=== PATIENT | female | born 1930 | race Caucasian/White ===

== ENCOUNTER 2017-01-30 20:07 | Emergency (ER) | payer MEDICARE, BC ==
[2017-01-30 21:21] LABS: Hematocrit 36 % (35-47); Hemoglobin 11.5 g/dl (12.0-16.0); Mean Corpuscular HGB Conc 33 g/dl (31-36); Mean Corpuscular Hemoglobin 28 pg (27-31); Mean Corpuscular Volume 86 fL (80-97); Mean Platelet Volume 8 um3 (7.4-10.4); Red Blood Count 4.12 10^6/ul (4.0-5.4); Red Cell Distribution Width 13 % (10.5-15); White Blood Count 11.7 10^3/ul (3.5-10.8)
--- NOTE | 2017-01-30 21:27 | RAD ---
INDICATION: Short of breath COMPARISON: January 31, 2014 TECHNIQUE: An AP portable view obtained at 2117 hours is submitted. FINDINGS: Bones/Soft Tissues: There are no acute bony findings. There is a scoliotic deformity. Cardiomediastinal: The cardiomediastinal silhouette is normal. Lungs: There is hyperinflation with mild chronic interstitial change. Pleura: There are no pleural effusions. Other: None IMPRESSION: HYPERINFLATION WITH MILD CHRONIC INTERSTITIAL CHANGE. NO ACUTE FINDINGS.
[2017-01-30 21:36] LABS: Albumin 3.5 g/dL (3.2-5.2); BUN/Creatinine Ratio 22.9 (8-20); Calcium 9.3 mg/dL (8.6-10.3); EGFR African American 102.3 (>60); EGFR Non-African American 79.5 (>60); Globulin 3.5 g/dL (2-4); Potassium 3.4 mmol/L (3.5-5.0); Total Bilirubin 0.5 mg/dL (0.2-1.0)
[2017-01-30] MEDS ORDERED: Clarithromycin TAB* 500 MG PO ONE ×2 (22:32→22:33)
[2017-01-30 22:45] VITALS: BP 118/57
--- NOTE | 2017-01-31 09:25 | ED ---
Susannah Bailey Thomas, scribed for Joseph Slade MD on 01/30/17 at 2058 . Shortness of Breath - HPI Summary HPI Summary: The patient is a 86 y/o F with a Hx of pulmonary problems who presents to the ED c/o SOB that began two days ago. She takes Symbicort and albuterol at home, which have not relieved her SOB. She additionally c/o a productive cough (mucus production) and weakness. She denies CP and pedal edema. She also takes Ambien at night. She sees Dr. James for her pulmonary problems. She says she quit smoking about a month ago although she did have a cigarette en route to [facility] [place] [facility] [place] - History of Current Complaint Chief Complaint: EDShortnessOfBreath Time Seen by Provider: 01/30/17 20:42 Hx Obtained From: Patient Onset/Duration: Lasting Days - onset two days ago, Still Present Timing: Constant Current Severity: Moderate Dyspnea At: Rest Aggrevating Factors: Nothing Alleviating Factors: Nothing Associated Signs & Symptoms: Cough (Productive) - mucus production Related History: Similar Episode - She has similar prior episodes of SOB. - Allergy/Home Medications Allergies/Adverse Reactions: Allergies Allergy/AdvReac Type Severity Reaction Status Date / Time No Known Allergies Allergy Verified 01/30/17 20:14 PMH/Surg Hx/FS Hx/Imm Hx Previously Healthy: No Endocrine/Hematology History: Denies: Hx Diabetes Cardiovascular History: Denies: Hx Congestive Heart Failure, Hx Hypertension Respiratory History: Reports: Other Respiratory Problems/Disorders - current SOB with exertion History: Denies: Hx Renal Disease - Surgical History Surgery Procedure, Year, and Place: gallbladder removal, appy, hysterectomy - Immunization History Date of Tetanus Vaccine: Unknown Infectious Disease History: No Infectious Disease History: Denies: Traveled Outside the [place] in Last 30 Days - Family History Known Family History: Positive: Other - POS: DM, [place] - Social History Alcohol Use: None Substance Use Type: Reports: None Smoking Status (MU): Heavy Every Day Tobacco Smoker Review of Systems Negative: Fever Negative: Chest Pain Positive: Shortness Of Breath - onset two days ago, unrelieved by Symbicort and albuterol Negative: Edema - legs All Other Systems Reviewed And Are Negative: Yes Physical Exam Triage Information Reviewed: Yes Vital Signs On Initial Exam: Initial Vitals Temp Pulse Resp BP Pulse Ox 97.9 F 118 36 122/48 93 01/30/17 20:12 01/30/17 20:12 01/30/17 20:12 01/30/17 20:12 01/30/17 20:12 Vital Signs Reviewed: Yes Appearance: Positive: Well-Appearing, No Pain Distress, Well-Nourished Skin: Positive: Warm, Skin Color Reflects Adequate Perfusion, Dry Head/Face: Positive: Normal Head/Face Inspection Eyes: Positive: Normal ENT: Positive: Normal ENT inspection Neck: Positive: Supple, Nontender Respiratory/Lung Sounds: Positive: Breath Sounds Present, Other - There are crackles at the right base. Cardiovascular: Positive: RRR Abdomen Description: Positive: Nontender, Soft Bowel Sounds: Positive: Present Musculoskeletal: Positive: Normal Neurological: Positive: Normal Psychiatric: Positive: Normal, Affect/Mood Appropriate Diagnostics - Vital Signs Vital Signs Temp Pulse Resp BP Pulse Ox 01/30/17 20:15 97.9 F 118 36 122/48 93 01/30/17 20:12 97.9 F 118 36 122/48 93 - Laboratory Lab Results: Lab Results 01/30/17 01/30/17 01/30/17 Range/Units 21:10 21:10 21:10 WBC 11.7 H (3.5-10.8) 10^3/ul RBC 4.12 (4.0-5.4) 10^6/ul Hgb 11.5 L (12.0-16.0) g/dl Hct 36 (35-47) % MCV 86 (80-97) fL MCH 28 (27-31) pg MCHC 33 (31-36) g/dl RDW 13 (10.5-15) % Plt Count 240 (150-450) 10^3/ul MPV 8 (7.4-10.4) um3 Neut % (Auto) 67.4 (38-83) % Lymph % (Auto) 17.7 L (25-47) % [place] % (Auto) 13.0 H (1-9) % Eos % (Auto) 1.5 (0-6) % Baso % (Auto) 0.4 (0-2) % Absolute Neuts (auto) 7.9 H (1.5-7.7) 10^3/ul Absolute Lymphs (auto) 2.1 (1.0-4.8) 10^3/ul Absolute Monos (auto) 1.5 H (0-0.8) 10^3/ul Absolute Eos (auto) 0.2 (0-0.6) 10^3/ul Absolute Basos (auto) 0.1 (0-0.2) 10^3/ul Absolute Nucleated RBC 0 10^3/ul Nucleated RBC % 0 Sodium 131 L (133-145) mmol/L Potassium 3.4 L (3.5-5.0) mmol/L Chloride 100 L (101-111) mmol/L Carbon Dioxide 24 (22-32) mmol/L Anion Gap 7 (2-11) mmol/L BUN 16 (6-24) mg/dL Creatinine 0.70 (0.51-0.95) mg/dL Est GFR ( Amer) 102.3 (>60) Est GFR (Non-Af Amer) 79.5 (>60) BUN/Creatinine Ratio 22.9 H (8-20) Glucose 124 H (70-100) mg/dL Lactic Acid (0.5-2.0) mmol/L Calcium 9.3 (8.6-10.3) mg/dL Total Bilirubin 0.50 (0.2-1.0) mg/dL AST 12 L (13-39) U/L ALT 11 (7-52) U/L Alkaline Phosphatase 68 (34-104) U/L Troponin I 0.00 (<0.04) ng/mL B-Natriuretic Peptide 54 ( - 100) pg/mL Total Protein 7.0 (6.4-8.9) g/dL Albumin 3.5 (3.2-5.2) g/dL Globulin 3.5 (2-4) g/dL Albumin/Globulin Ratio 1.0 (1-3) 01/30/17 Range/Units 21:10 WBC (3.5-10.8) 10^3/ul RBC (4.0-5.4) 10^6/ul Hgb (12.0-16.0) g/dl Hct (35-47) % MCV (80-97) fL MCH (27-31) pg MCHC (31-36) g/dl RDW (10.5-15) % Plt Count (150-450) 10^3/ul MPV (7.4-10.4) um3 Neut % (Auto) (38-83) % Lymph % (Auto) (25-47) % [place] % (Auto) (1-9) % Eos % (Auto) (0-6) % Baso % (Auto) (0-2) % Absolute Neuts (auto) (1.5-7.7) 10^3/ul Absolute Lymphs (auto) (1.0-4.8) 10^3/ul Absolute Monos (auto) (0-0.8) 10^3/ul Absolute Eos (auto) (0-0.6) 10^3/ul Absolute Basos (auto) (0-0.2) 10^3/ul Absolute Nucleated RBC 10^3/ul Nucleated RBC % Sodium (133-145) mmol/L Potassium (3.5-5.0) mmol/L Chloride (101-111) mmol/L Carbon Dioxide (22-32) mmol/L Anion Gap (2-11) mmol/L BUN (6-24) mg/dL Creatinine (0.51-0.95) mg/dL Est GFR ( Amer) (>60) Est GFR (Non-Af Amer) (>60) BUN/Creatinine Ratio (8-20) Glucose (70-100) mg/dL Lactic Acid 1.2 (0.5-2.0) mmol/L Calcium (8.6-10.3) mg/dL Total Bilirubin (0.2-1.0) mg/dL AST (13-39) U/L ALT (7-52) U/L Alkaline Phosphatase (34-104) U/L Troponin I (<0.04) ng/mL B-Natriuretic Peptide ( - 100) pg/mL Total Protein (6.4-8.9) g/dL Albumin (3.2-5.2) g/dL Globulin (2-4) g/dL Albumin/Globulin Ratio (1-3) Result Diagrams: 01/30/17 21:10 01/30/17 21:10 Lab Statement: Any lab studies that have been ordered have been reviewed, and results considered in the medical decision making process. - EKG 20:22 Cardiac Rate: Tachycardia - 100 BPM EKG Interpretation: Sinus tachycardia. Course/Dx - Course Course Of Treatment: Ms Beckford clearly has pulmonary problems. She is being W/ U'd and taken care of by . She is a smoker. She uses COPD meds. When she arrived, Her SPO2 was marginal, she was tachycardic and she was mildly tachypneic. I heard no wheezes although she had just had a neb in the EMS. I did hear a lot of upper airway sounds and crackles in her right base. A CXR was read as no acute pathology by the radiologist although I wasn't sure about the RLL. I wanted to treat her more aggressively with steroids and admission to the hospital but she wanted to go home as she felt better. She was still in the low 90's for SPO2 and a little tachypneic at about 20. She was no longer tachycardic. She may have bronchiectasis and I am going to cover her with levaquin and encourage return for worsening and close F/U. - Diagnoses Provider Diagnoses: Bronchitis Discharge - Discharge Plan Condition: Stable Disposition: HOME Prescriptions: Levofloxacin TAB* [Levaquin TAB*] 750 mg PO DAILY #10 tab Patient Education Materials: Acute Bronchitis (ED) Referrals: Coreen Zavala MD [Primary Care Provider] - 4 Days Additional Instructions: Follow up with your primary care provider within a 4-5 days. Return to the emergency department for any new or worsening symptoms. The documentation as recorded by the Susannah blanchard Thomas accurately reflects the service I personally performed and the decisions made by me, Joseph Slade MD.
== END 2017-01-30 22:45 | disposition home or self-care (01) ==
LOC: ED 20:07
DX: J40 Bronchitis, not specified as acute or chronic (principal); R05 Cough; R06.2 Wheezing; F17.210 Nicotine dependence, cigarettes, uncomplicated
CPT/HCPCS: 36415; 71010; 80053; 83605; 83880; 84484; 85025; 93005; 99283; A9270-GY

== ENCOUNTER 2017-01-31 18:12 | Inpatient (IN) | payer MEDICARE, BC ==
[2017-01-31] MEDS ORDERED: diPHENhydraMINE IV* 50 MG/ML 1 ml VIAL (BENADRYL) IV ONE (20:36)
[2017-01-31] MEDS ORDERED: methylPREDNISolone 125 MG* 2 ML VIAL IV ONE (20:37)
[2017-01-31] MEDS ORDERED: Albuterol/Ipratropium NEB.SOL* Albuterol 2.5 MG/Ipratropium 0.5 MG 3 ML INH ONE (20:39)
[2017-01-31] MEDS: NS 0.9% 1000 ML* 2,100 ML IV ONE ×2 (21:01→23:15)
--- NOTE | 2017-01-31 21:09 | RAD ---
INDICATION: Pneumonia COMPARISON: January 30, 2017 TECHNIQUE: PA and lateral dual-energy views were obtained. FINDINGS: Bones/Soft Tissues: There are no acute bony findings. Cardiomediastinal: The cardiomediastinal silhouette is normal. Lungs: There is a small right basal infiltrate. The remaining lung waddell are clear. There is mild hyperinflation. Pleura: There are no pleural effusions. Other: None IMPRESSION: SMALL RIGHT BASAL INFILTRATE.
[2017-01-31 21:41] LABS: Hematocrit 34 % (35-47); Hemoglobin 11.1 g/dl (12.0-16.0); Mean Corpuscular HGB Conc 33 g/dl (31-36); Mean Corpuscular Hemoglobin 28 pg (27-31); Mean Corpuscular Volume 87 fL (80-97); Mean Platelet Volume 8 um3 (7.4-10.4); Red Blood Count 3.91 10^6/ul (4.0-5.4); Red Cell Distribution Width 13 % (10.5-15); White Blood Count 11.5 10^3/ul (3.5-10.8)
[2017-01-31 21:56] LABS: Albumin 3.3 g/dL (3.2-5.2); BUN/Creatinine Ratio 20.8 (8-20); Calcium 8.6 mg/dL (8.6-10.3); Globulin 3.4 g/dL (2-4); Potassium 3.8 mmol/L (3.5-5.0); Total Bilirubin 0.6 mg/dL (0.2-1.0); Total Protein 6.7 g/dL (6.4-8.9)
[2017-01-31 21:57] LABS: Troponin I 0.01 ng/mL (<0.04)
--- NOTE | 2017-02-01 01:05 | ED ---
Vitaliy Bailey Angela, scribed for Rose Dotson MD on 01/31/17 at 2028 . Shortness of Breath - HPI Summary HPI Summary: This pt is a 86 y/o female presenting to [facility] c/o sinus congestion and SOB x2 days ago, and now has increased SOB. Pt was in the ED yesterday and was given antibiotics for pneumonia. Pt states she has taken the Clarithromycin and Levaquin as prescribed, but she feels worse. Pt is a current smoker. - History of Current Complaint Chief Complaint: EDShortnessOfBreath Time Seen by Provider: 01/31/17 20:06 Hx Obtained From: Patient, Family/Polisher And Sander - Onset/Duration: Lasting Days Timing: Constant Dyspnea At: Exertion Aggrevating Factors: Nothing Alleviating Factors: Nothing - Allergy/Home Medications Allergies/Adverse Reactions: Allergies Allergy/AdvReac Type Severity Reaction Status Date / Time No Known Allergies Allergy Verified 01/31/17 20:42 Home Medications: Home Medications Clarithromycin TAB* 01/31/17 [History] PMH/Surg Hx/FS Hx/Imm Hx Endocrine/Hematology History: Denies: Hx Diabetes Cardiovascular History: Denies: Hx Congestive Heart Failure, Hx Hypertension Respiratory History: Reports: Other Respiratory Problems/Disorders - current SOB with exertion History: Denies: Hx Renal Disease - Surgical History Surgery Procedure, Year, and Place: gallbladder removal, appy, hysterectomy - Immunization History Date of Tetanus Vaccine: Unknown Infectious Disease History: No Infectious Disease History: Denies: Traveled Outside the [place] in Last 30 Days - Family History Known Family History: Positive: Other - POS: DM, [place] Negative: Hypertension - Social History Lives: With Family - Alcohol Use: None Substance Use Type: Reports: None Smoking Status (MU): Heavy Every Day Tobacco Smoker Review of Systems Negative: Fever, Chills Eyes: Negative ENT: Negative Negative: Palpitations, Chest Pain Positive: Shortness Of Breath Gastrointestinal: Negative Genitourinary: Negative Musculoskeletal: Negative Skin: Negative Neurological: Negative All Other Systems Reviewed And Are Negative: Yes Physical Exam Triage Information Reviewed: Yes Vital Signs On Initial Exam: Initial Vitals Temp Pulse Resp BP Pulse Ox 100 F 116 22 123/60 92 01/31/17 18:22 01/31/17 18:22 01/31/17 18:22 01/31/17 18:22 01/31/17 18:22 Vital Signs Reviewed: Yes Appearance: Positive: No Pain Distress, Ill-Appearing Skin: Positive: Warm, Skin Color Reflects Adequate Perfusion, Dry Eyes: Positive: EOMI, CORAL ENT: Positive: Pharynx normal, TMs normal Neck: Positive: Supple, Nontender Respiratory/Lung Sounds: Positive: Rhonchi - at the bases, Other - tachypnic but not in respiratory failure Cardiovascular: Positive: RRR. Negative: Murmur, Rub, Other - gallop Abdomen Description: Positive: Nontender, Soft Bowel Sounds: Positive: Present Musculoskeletal: Positive: Strength/ROM Intact. Negative: Edema Left, Edema Right Neurological: Positive: Sensory/Motor Intact, Alert, Oriented to Person Place, Time, CN Intact II-III Psychiatric: Positive: Affect/Mood Appropriate Diagnostics - Vital Signs Vital Signs Temp Pulse Resp BP Pulse Ox 01/31/17 20:16 98.9 F 94 20 101/57 94 01/31/17 19:12 101.6 F 111 18 107/57 94 01/31/17 18:22 100 F 116 22 123/60 92 - Laboratory Lab Results: Lab Results 01/31/17 01/31/17 01/31/17 Range/Units 21:31 21:31 21:31 WBC 11.5 H (3.5-10.8) 10^3/ul RBC 3.91 L (4.0-5.4) 10^6/ul Hgb 11.1 L (12.0-16.0) g/dl Hct 34 L (35-47) % MCV 87 (80-97) fL MCH 28 (27-31) pg MCHC 33 (31-36) g/dl RDW 13 (10.5-15) % Plt Count 231 (150-450) 10^3/ul MPV 8 (7.4-10.4) um3 Neut % (Auto) 71.1 (38-83) % Lymph % (Auto) 16.5 L (25-47) % [place] % (Auto) 12.0 H (1-9) % Eos % (Auto) 0.2 (0-6) % Baso % (Auto) 0.2 (0-2) % Absolute Neuts (auto) 8.2 H (1.5-7.7) 10^3/ul Absolute Lymphs (auto) 1.9 (1.0-4.8) 10^3/ul Absolute Monos (auto) 1.4 H (0-0.8) 10^3/ul Absolute Eos (auto) 0 (0-0.6) 10^3/ul Absolute Basos (auto) 0 (0-0.2) 10^3/ul Absolute Nucleated RBC 0.01 10^3/ul Nucleated RBC % 0 INR (Anticoag Therapy) 1.43 H (0.89-1.11) APTT 29.9 (26.0-36.3) seconds Sodium 134 (133-145) mmol/L Potassium 3.8 (3.5-5.0) mmol/L Chloride 101 (101-111) mmol/L Carbon Dioxide 24 (22-32) mmol/L Anion Gap 9 (2-11) mmol/L BUN 15 (6-24) mg/dL Creatinine 0.72 (0.51-0.95) mg/dL Est GFR ( Amer) 99.0 (>60) Est GFR (Non-Af Amer) 77.0 (>60) BUN/Creatinine Ratio 20.8 H (8-20) Glucose 112 H (70-100) mg/dL Lactic Acid (0.5-2.0) mmol/L Calcium 8.6 (8.6-10.3) mg/dL Total Bilirubin 0.60 (0.2-1.0) mg/dL AST 14 (13-39) U/L ALT 12 (7-52) U/L Alkaline Phosphatase 59 (34-104) U/L Troponin I 0.01 (<0.04) ng/mL Total Protein 6.7 (6.4-8.9) g/dL Albumin 3.3 (3.2-5.2) g/dL Globulin 3.4 (2-4) g/dL Albumin/Globulin Ratio 1.0 (1-3) 01/31/17 Range/Units 21:31 WBC (3.5-10.8) 10^3/ul RBC (4.0-5.4) 10^6/ul Hgb (12.0-16.0) g/dl Hct (35-47) % MCV (80-97) fL MCH (27-31) pg MCHC (31-36) g/dl RDW (10.5-15) % Plt Count (150-450) 10^3/ul MPV (7.4-10.4) um3 Neut % (Auto) (38-83) % Lymph % (Auto) (25-47) % [place] % (Auto) (1-9) % Eos % (Auto) (0-6) % Baso % (Auto) (0-2) % Absolute Neuts (auto) (1.5-7.7) 10^3/ul Absolute Lymphs (auto) (1.0-4.8) 10^3/ul Absolute Monos (auto) (0-0.8) 10^3/ul Absolute Eos (auto) (0-0.6) 10^3/ul Absolute Basos (auto) (0-0.2) 10^3/ul Absolute Nucleated RBC 10^3/ul Nucleated RBC % INR (Anticoag Therapy) (0.89-1.11) APTT (26.0-36.3) seconds Sodium (133-145) mmol/L Potassium (3.5-5.0) mmol/L Chloride (101-111) mmol/L Carbon Dioxide (22-32) mmol/L Anion Gap (2-11) mmol/L BUN (6-24) mg/dL Creatinine (0.51-0.95) mg/dL Est GFR ( Amer) (>60) Est GFR (Non-Af Amer) (>60) BUN/Creatinine Ratio (8-20) Glucose (70-100) mg/dL Lactic Acid 1.4 (0.5-2.0) mmol/L Calcium (8.6-10.3) mg/dL Total Bilirubin (0.2-1.0) mg/dL AST (13-39) U/L ALT (7-52) U/L Alkaline Phosphatase (34-104) U/L Troponin I (<0.04) ng/mL Total Protein (6.4-8.9) g/dL Albumin (3.2-5.2) g/dL Globulin (2-4) g/dL Albumin/Globulin Ratio (1-3) Result Diagrams: 01/31/17 21:31 01/31/17 21:31 Lab Statement: Any lab studies that have been ordered have been reviewed, and results considered in the medical decision making process. - Radiology Chest XR Xray Interpretation: Positive (See Comments) - IMPRESSION: small right basal infiltrate. ED physician has reviewed this radiology report and agrees. Radiology Interpretation Completed By: Radiologist - EKG 2034 Cardiac Rate: NL EKG Rhythm: Sinus Rhythm EKG Comparison: No Significant Change - No change compared to yesterday's () EKG. Course/Dx - Course Assessment/Plan: pt seen on Sat with likely pneumonia pt wanted to go home despite offering admission and is back today with worsened shortness of breath. cxr today does show an infiltrate,case was discussed with Kumar and she was accepted for admission - Diagnoses Differential Diagnosis/HQI/PQRI: Positive: Pneumonia Provider Diagnoses: Pneumonia, COPD (chronic obstructive pulmonary disease) - Physician Notifications Discussed Care of Patient With: Luis Heath Time Discussed With Above Provider: 20:40 Instructed by Provider To: Other - I discussed the pt's case with Dr. Heath. He has agreed to admit the pt. Discharge - Discharge Plan Condition: Stable Disposition: ADMITTED TO [facility] Referrals: Coreen Zavala MD [Primary Care Provider] - The documentation as recorded by the Vitaliy blanchard Angela accurately reflects the service I personally performed and the decisions made by me, Rose Dotson MD.
--- NOTE | 2017-02-01 03:30 | HP ---
H&P (Free Text) History and Physical: PCP: Chaim Zavala MD Date/Time: 02/01/2017 0300 CC: SOB, cough HPI: Mrs Beckford is an 86YO female seen at [facility] [place] [facility] 01/30/2017 for SOB & cough with a negative evaluation and released with a prescription for clarithromycin & levofloxacin for suspected pneumnonia which she reports taking, but feels worse. She returns today for ongoing SOB & cough. She also has decreased appetite, generalized weakness, & malaise. She denies chest pain, N/V, palpitations, LE edema, or other issues. Repeat CXR today shows interval development of a RLL infiltrate. PMedHx insomnia Ambulatory Orders Zolpidem TAB* [Ambien*] 10 mg PO BEDTIME 12/24/13 Clarithromycin TAB* 01/31/17 Levofloxacin TAB* [Levaquin TAB*] 750 mg PO DAILY #10 tab 01/31/17 Allergies No Known Allergies Allergy (Verified 01/31/17 20:42) PSurgHx OU cataract extractions cholecystectomy appendectomy hysterectomy SocHx: 1PPD tobacco, no alcohol, no recreational drugs; x2, lives with her son; full code status FamHx: Mother passed at 87 2nd Alzheimer's. Father passed at 79 2nd complications of alcoholism. Siblings: pacer placement ROS: as above, otherwise reviewed and all were negative vitals: Vital Signs Temp 36.5 C 02/01/17 03:00 Pulse 73 02/01/17 03:03 Resp 29 02/01/17 03:03 BP 107/60 02/01/17 03:03 Pulse Ox 94 02/01/17 03:03 Intake & Output 01/31/17 01/31/17 02/01/17 11:59 23:59 11:59 Intake Total 4000 Balance 4000 Weight 68.039 kg Intake: IV Fluids 4000 Constitutional: NAD, normally developed, overweight elderly white female HEENM: atraumatic; sclera/conjunctiva: non-icteric/clear; hearing: clinically mild/mod decreased; oropharynx: clear, mucosa moist Neck: soft tissue: non-tender; thyroid: normal Pulmonary: R basal crackle, B mid- to end- expiratory wheeze with prolonged expiratory phase; mildly diminished B, fair to good aeration, no accessory muscle use CV: RR/RR, normal S1S2, no carotid bruit, no jugular venous distention, 2+ B DP/ PT, no edema Abdominal: soft, non-distended, non-tender, no rebound/guarding/rigidity, normoactive bowel sounds, no hepatosplenomegaly or masses, no costovertebral angle tenderness Musculoskeletal: general: grossly intact, no palpable tenderness Integumental: normal appearance and texture of exposed skin Psychiatric orientation: AA&O to PPS affect: mildly anxious mood: cooperative eye contact: good content: reliable responses: timely insight: fair Testing: Lab Results 01/31/17 01/31/17 01/31/17 Range/Units 21:31 21:31 21:31 WBC 11.5 H (3.5-10.8) 10^3/ul RBC 3.91 L (4.0-5.4) 10^6/ul Hgb 11.1 L (12.0-16.0) g/dl Hct 34 L (35-47) % MCV 87 (80-97) fL MCH 28 (27-31) pg MCHC 33 (31-36) g/dl RDW 13 (10.5-15) % Plt Count 231 (150-450) 10^3/ul MPV 8 (7.4-10.4) um3 Neut % (Auto) 71.1 (38-83) % Lymph % (Auto) 16.5 L (25-47) % [place] % (Auto) 12.0 H (1-9) % Eos % (Auto) 0.2 (0-6) % Baso % (Auto) 0.2 (0-2) % Absolute Neuts (auto) 8.2 H (1.5-7.7) 10^3/ul Absolute Lymphs (auto) 1.9 (1.0-4.8) 10^3/ul Absolute Monos (auto) 1.4 H (0-0.8) 10^3/ul Absolute Eos (auto) 0 (0-0.6) 10^3/ul Absolute Basos (auto) 0 (0-0.2) 10^3/ul Absolute Nucleated RBC 0.01 10^3/ul Nucleated RBC % 0 INR (Anticoag Therapy) 1.43 H (0.89-1.11) APTT 29.9 (26.0-36.3) seconds Sodium 134 (133-145) mmol/L Potassium 3.8 (3.5-5.0) mmol/L Chloride 101 (101-111) mmol/L Carbon Dioxide 24 (22-32) mmol/L Anion Gap 9 (2-11) mmol/L BUN 15 (6-24) mg/dL Creatinine 0.72 (0.51-0.95) mg/dL Est GFR ( Amer) 99.0 (>60) Est GFR (Non-Af Amer) 77.0 (>60) BUN/Creatinine Ratio 20.8 H (8-20) Glucose 112 H (70-100) mg/dL Lactic Acid (0.5-2.0) mmol/L Calcium 8.6 (8.6-10.3) mg/dL Total Bilirubin 0.60 (0.2-1.0) mg/dL AST 14 (13-39) U/L ALT 12 (7-52) U/L Alkaline Phosphatase 59 (34-104) U/L Troponin I 0.01 (<0.04) ng/mL Total Protein 6.7 (6.4-8.9) g/dL Albumin 3.3 (3.2-5.2) g/dL Globulin 3.4 (2-4) g/dL Albumin/Globulin Ratio 1.0 (1-3) // Range/Units 21:31 WBC (3.5-10.8) 10^3/ul RBC (4.0-5.4) 10^6/ul Hgb (12.0-16.0) g/dl Hct (35-47) % MCV (80-97) fL MCH (27-31) pg MCHC (31-36) g/dl RDW (10.5-15) % Plt Count (150-450) 10^3/ul MPV (7.4-10.4) um3 Neut % (Auto) (38-83) % Lymph % (Auto) (25-47) % [place] % (Auto) (1-9) % Eos % (Auto) (0-6) % Baso % (Auto) (0-2) % Absolute Neuts (auto) (1.5-7.7) 10^3/ul Absolute Lymphs (auto) (1.0-4.8) 10^3/ul Absolute Monos (auto) (0-0.8) 10^3/ul Absolute Eos (auto) (0-0.6) 10^3/ul Absolute Basos (auto) (0-0.2) 10^3/ul Absolute Nucleated RBC 10^3/ul Nucleated RBC % INR (Anticoag Therapy) (0.89-1.11) APTT (26.0-36.3) seconds Sodium (133-145) mmol/L Potassium (3.5-5.0) mmol/L Chloride (101-111) mmol/L Carbon Dioxide (22-32) mmol/L Anion Gap (2-11) mmol/L BUN (6-24) mg/dL Creatinine (0.51-0.95) mg/dL Est GFR ( Amer) (>60) Est GFR (Non-Af Amer) (>60) BUN/Creatinine Ratio (8-20) Glucose (70-100) mg/dL Lactic Acid 1.4 (0.5-2.0) mmol/L Calcium (8.6-10.3) mg/dL Total Bilirubin (0.2-1.0) mg/dL AST (13-39) U/L ALT (7-52) U/L Alkaline Phosphatase (34-104) U/L Troponin I (<0.04) ng/mL Total Protein (6.4-8.9) g/dL Albumin (3.2-5.2) g/dL Globulin (2-4) g/dL Albumin/Globulin Ratio (1-3) ECG, personally reviewed: NSR rate 93, no ischemia CXR, personally reviewed: IMPRESSION: SMALL RIGHT BASAL INFILTRATE. Impression: 86F presenting with RLL pneumonia DIAGNOSIS & PLAN Primary RLL pneumonia : took PO levofloxacin 01/31 : IV levofloxacin starting this AM : IVFs : blood & sputum CXs : urine S pneumo & Legionella antigens : supplemental oxygen : guaifenesin : incentive spirometry : supportive care COPD exacerbation : albuterol nebs : mometasone/formoterol : tiotropium : IV methylprednisolone : smoking cessation advised, moderate motivation Secondary insomnia : continue HS zolpidem Admission Rational: inpatient for pneumonia requiring IV ABX and IVFs in an elderly patient at risk of rapid/terminal decompensation making outpatient setting inappropriate DVTp: heparin SQ & SCDs Code Status: full HCP: son
[2017-02-01] MEDS ORDERED: Nicotine Inhaler* 10 MG AMP INH PRN (03:46)
[2017-02-01] MEDS ORDERED: Ondansetron INJ* 2 MG/ML VIAL IV PRN (03:46)
[2017-02-01] MEDS ORDERED: CMCS: Melatonin (NF) 3 MG TAB PO PRN (03:46)
[2017-02-01] MEDS ORDERED: Albuterol 2.5 MG/3 ML NEB.SOL* (0.083%) INH PRN (03:46)
[2017-02-01] MEDS ORDERED: Acetaminophen TAB* 325 MG PO PRN (03:46)
[2017-02-01] MEDS: NS 0.9% 1000 ML* 1,000 ML IV SCH ×2 (05:30→20:20)
[2017-02-01] MEDS: Levofloxacin 750 MG IVPREMIX(* 750 MG/150 ML BAG IVPB SCH (06:14)
[2017-02-01] MEDS: Omeprazole CAP* 20 MG PO SCH (06:15)
[2017-02-01 06:45] LABS: Hematocrit 34 % (35-47); Hemoglobin 11.1 g/dl (12.0-16.0); Mean Corpuscular HGB Conc 33 g/dl (31-36); Mean Corpuscular Hemoglobin 29 pg (27-31); Mean Corpuscular Volume 87 fL (80-97); Mean Platelet Volume 8 um3 (7.4-10.4); Red Blood Count 3.89 10^6/ul (4.0-5.4); Red Cell Distribution Width 13 % (10.5-15); White Blood Count 7.4 10^3/ul (3.5-10.8)
[2017-02-01] MEDS: Albuterol 2.5 MG/3 ML NEB.SOL* (0.083%) INH SCH ×2 (08:38→15:54)
[2017-02-01] MEDS: Mometasone/Formoter 200/5 MDI INH SCH ×2 (08:39→20:07)
[2017-02-01] MEDS: Tiotropium CAP.INH* CAP.INH/18 MCG (USE ORDER SET !) INH SCH (08:39)
[2017-02-01] MEDS ORDERED: Influenza VAC *QUAD* 2017-18* 0.5 ML SYRINGE IM ONE (09:00)
[2017-02-01] MEDS ORDERED: Spiriva Inhaler DEVICE* 1 EACH DEVICE INH ONE (09:00)
[2017-02-01] MEDS: guaiFENesin ER TAB 600 MG PO SCH ×2 (10:11→20:13)
[2017-02-01] MEDS: Docusate CAP* 100 MG PO SCH ×2 (10:12→20:13)
--- NOTE | 2017-02-01 15:29 | PN ---
Hospitalist Progress Note HOSPITALIST ADDENDUM Mrs. Beckford is an 86yo F with PMH of tobacco abuse and probable COPD, who presented to ED with c/o dyspnea and cough, found to have RLL pneumonia. She offers no new complaints. Agree with current management.
[2017-02-01] MEDS: ALPRAZolam TAB* 0.25 MG PO PRN (17:50)
[2017-02-01] MEDS: Zolpidem TAB* 10 MG PO PRN (21:44)
[2017-02-02] MEDS: methylPREDNISolone SOD 40 MG* 1 ML VIAL IV SCH ×3 (04:41→21:13)
[2017-02-02] MEDS: Levofloxacin 750 MG IVPREMIX(* 750 MG/150 ML BAG IVPB SCH (05:56)
[2017-02-02] MEDS: Omeprazole CAP* 20 MG PO SCH (05:58)
[2017-02-02] MEDS: Heparin VIAL(*) 5000 UNITS/ML VIAL (FIVE THOUSAND) SUBCUT SCH ×3 (05:58→21:24)
[2017-02-02] MEDS: Tiotropium CAP.INH* CAP.INH/18 MCG (USE ORDER SET !) INH SCH (08:51)
[2017-02-02] MEDS: Mometasone/Formoter 200/5 MDI INH SCH ×2 (08:52→21:31)
[2017-02-02] MEDS: guaiFENesin ER TAB 600 MG PO SCH ×2 (10:09→21:10)
[2017-02-02] MEDS: Docusate CAP* 100 MG PO SCH ×2 (10:09→21:10)
[2017-02-02] MEDS: ALPRAZolam TAB* 0.25 MG PO PRN (10:09)
--- NOTE | 2017-02-02 14:58 | PN ---
Subjective Date of Service: 02/02/17 Interval History: HOSPITALIST PROGRESS NOTE Patient seen and examined at bedside. She feels better today. Dyspnea and cough are still present, but less intense. Appetite is poor, but she states this is her baseline. Family History: Unchanged from Admission Social History: Unchanged from Admission Past Medical History: Unchanged from Admission Objective Active Medications: Acetaminophen (Tylenol Tab*) 650 mg PO Q6H PRN PRN Reason: FEVER/PAIN Albuterol (Ventolin 2.5 Mg/3 Ml Neb.Ivy*) 2.5 mg INH Q2H PRN PRN Reason: SOB/WHEEZING Last Admin: 02/02/17 05:22 Dose: 2.5 mg Alprazolam (Xanax Tab*) 0.25 mg PO Q8H PRN PRN Reason: ANXIETY Last Admin: 02/02/17 10:09 Dose: 0.25 mg Docusate Sodium (Colace Cap*) 200 mg PO BID [facility] Last Admin: 02/02/17 10:09 Dose: 200 mg Guaifenesin (Mucinex*) 1,200 mg PO BID [facility] Last Admin: 02/02/17 10:09 Dose: 1,200 mg Heparin Sodium (Porcine) (Heparin Vial(*)) 5,000 units SUBCUT Q8HR [facility] Last Admin: 02/02/17 05:58 Dose: 5,000 units Levofloxacin/Dextrose (Levaquin 750 Mg Ivpremix(*)) 750 mg in 150 mls @ 100 mls /hr IVPB Q24H [facility] Last Admin: 02/02/17 05:56 Dose: 100 mls/hr Melatonin (Melatonin (Nf)) 3 mg PO BEDTIME PRN; Protocol PRN Reason: Sleep Methylprednisolone Sodium Succinate (Solu-Medrol 40 Mg) 40 mg IV Q8H [facility] Last Admin: 02/02/17 12:38 Dose: 40 mg Mometasone Furoate/Formoterol Fumar (Dulera 200/5 Mdi*) 2 puff INH BID [facility] Last Admin: 02/02/17 08:52 Dose: 2 puff Nicotine (Nicotine Inhaler*) 10 mg INH Q2H PRN PRN Reason: CRAVING Omeprazole (Prilosec Cap*) 20 mg PO DAILY@0600 [facility] Last Admin: 02/02/17 05:58 Dose: 20 mg Ondansetron HCl (Zofran Inj*) 4 mg IV Q6H PRN PRN Reason: NAUSEA Tiotropium [place] (Spiriva Cap.Inh*) 1 cap INH DAILY [facility] Last Admin: 02/02/17 08:51 Dose: 1 cap Zolpidem Tartrate (Ambien Tab*) 10 mg PO BEDTIME PRN PRN Reason: SLEEP Last Admin: 02/01/17 21:44 Dose: 10 mg Vital Signs 02/02/17 02/02/17 02/02/17 11:40 11:43 12:09 Temperature 98.6 F Pulse Rate 76 Respiratory 18 18 Rate Blood Pressure 125/53 (mmHg) O2 Sat by Pulse 95 95 Oximetry Oxygen Devices in Use Now: Nasal Cannula Appearance: Elderly lady sitting up in bed in NAD. Eyes: No Scleral Icterus Ears/Nose/Mouth/Throat: Mucous Membranes Moist Neck: Trachea Midline Respiratory: Symmetrical Chest Expansion and Respiratory Effort, - - BS+ bilaterally decreased with no added sounds Cardiovascular: RRR - Normal S1 and S2 Abdominal: NL Sounds; No Tenderness; No Distention Neurological: Alert and Oriented x 3, NL Muscle Strength and Tone Lines/Tubes/Other Access: Clean, Dry and Intact Peripheral IV Nutrition: Taking PO's Result Diagrams: 02/01/17 06:19 01/31/17 21:31 Assess/Plan/Problems-Billing Assessment: Mrs. Beckford is an 86yo F with PMH of tobacco abuse and probable COPD who presented to ED with c/o dyspnea and cough, found to have RLL pneumonia. - Patient Problems (1) Acute hypoxemic respiratory failure Comment: - Secondary to COPD and pneumonia. - Continue supplemental O2. (2) Right lower lobe pneumonia Comment: - Blood cultures show no growth and Influenza was negative. - Check Legionella and pneumococcal Ag. - Continue Levofloxacin. (3) COPD exacerbation Comment: - Secondary to pneumonia. - Continue bronchodilators and steroids. (4) Anxiety Comment: - Continue Xanax PRN. (5) Tobacco abuse counseling Comment: - Patient advised about importance of quitting. She understand if she continues to smoke she's at risk for worsening lung disease, heart disease, cancer, and . She verbalizes understanding, states she quit "cold turkey" before, but not interested at this time. - Declines nicotine supplementation. (6) DVT prophylaxis Comment: - SQ heparin. (7) Full code status Status and Disposition: Inpatient for management of pneumonia and COPD, requiring >48h for stabilization.
[2017-02-02] MEDS: Zolpidem TAB* 10 MG PO PRN (21:10)
[2017-02-03] MEDS: methylPREDNISolone SOD 40 MG* 1 ML VIAL IV SCH (05:43)
[2017-02-03] MEDS: Levofloxacin 750 MG IVPREMIX(* 750 MG/150 ML BAG IVPB SCH (05:43)
[2017-02-03] MEDS: Heparin VIAL(*) 5000 UNITS/ML VIAL (FIVE THOUSAND) SUBCUT SCH (05:46)
[2017-02-03] MEDS: Omeprazole CAP* 20 MG PO SCH (05:46)
[2017-02-03] MEDS: Tiotropium CAP.INH* CAP.INH/18 MCG (USE ORDER SET !) INH SCH (07:47)
[2017-02-03] MEDS: Docusate CAP* 100 MG PO SCH (07:47)
[2017-02-03] MEDS: guaiFENesin ER TAB 600 MG PO SCH (07:47)
[2017-02-03] MEDS: Mometasone/Formoter 200/5 MDI INH SCH (07:48)
[2017-02-03 17:55] VITALS: BP 119/56
--- NOTE | 2017-02-04 03:49 | DS ---
CC: Dr. Zavala * DISCHARGE SUMMARY: DATE OF ADMISSION: 02/01/17 DATE OF DISCHARGE: 02/03/17 PRIMARY CARE PROVIDER: Dr. Zavala. DISCHARGE DIAGNOSES: 1. Acute hypoxic respiratory failure. 2. Right lower lobe pneumonia. 3. Acute chronic obstructive pulmonary disease exacerbation secondary to pneumonia. SECONDARY DIAGNOSES: 1. Tobacco abuse. 2. Anxiety. MEDICATION LIST: Ambien 10 mg p.o. at bedtime. New medications: 1. Albuterol HFA 2 puffs inhaled q.4 hours p.r.n. shortness of breath. 2. Alprazolam 0.25 mg p.o. q.8 hours p.r.n. anxiety, MDD 3 tablets, dispensed 15 tablets. The [facility] Prescription Program was consulted and the only prescription for control substances is for zolpidem. Reference number is [id number]. 3. Guaifenesin ER 1200 mg p.o. b.i.d. 4. Levofloxacin 750 mg p.o. daily for 5 more days. 5. Omeprazole 20 mg p.o. daily. 6. Prednisone taper as follows: 40 mg p.o. daily for 3 days, 30 mg for 3 days , 20 mg for 3 days, 10 mg for 3 days, then stop. 7. Spiriva 1 capsule inhaled daily. HOSPITAL COURSE: Ms. Fuchs is an 86-year-old lady with the past medical history as stated above that presented to the emergency room with complaints of shortness of breath and cough. She was diagnosed with pneumonia and discharged on levofloxacin that she took for less than 24 hours before returning to emergency room complaining she felt worse. For more details about her presentation, I refer you to her history and physical. Initial chest x-ray showed a right lower lobe infiltrate and the patient had minimal elevation of her WBC of 11.5. She was admitted, she was in medical floor for further management. With levofloxacin, bronchodilators, and steroids, the patient had significant improvement of her symptoms. Initially, she was hypoxic with an oxygen saturation of 85% on room air and required supplemental oxygen, but as she continued to improve, she did not require supplemental O2 any longer and was able to maintain saturation greater than 90% on room air. The patient was never formally diagnosed with COPD and after this episode resolved, she will probably benefit of a spirometry as outpatient. The patient was advised about the risks of tobacco use including, but not limited to, heart and lung disease, stroke, multiple types of cancer. She states that she was able to quit "cold turkey" in the past and she plans to do so in the future, but she states that she is not ready to try at this time. She declined my offer for nicotine supplementation. The patient is very anxious at this time going through some issues on her personal life. She received prescription for a small quantity of Xanax at this point, but she will need further addressing of her anxiety as outpatient. She is medically stable for discharge today to follow up with Dr. Zavala as outpatient. PHYSICAL EXAMINATION: Vital Signs: Temperature 97.9, heart rate is 74, respiratory rate is 16, oxygen saturation is 96% on room air, and blood pressure is 124/57. General: The patient is a pleasant elderly lady, sitting up in bed, in no acute distress. CVS: Normal S1, S2. Regular rate and rhythm. Chest: Breath sounds present bilaterally decreased with no added sounds. Abdomen: Soft. Bowel sounds are present. Extremities: No edema. Neuro: She is alert, awake, oriented x3. Able to move all 4 extremities. DIET: Regular diet. ACTIVITIES: As tolerated. DISPOSITION: To home. STATUS WHILE IN THE HOSPITAL: Inpatient. Please keep in mind that this is a summarized version of this patient's hospital stay. If you need more information, please feel free to call me at [phone] or please obtain the full medical records. TIME SPENT: Approximately 45 minutes was spent to complete this discharge. [id number]/[facility] #: [id number] [place]
== END 2017-02-03 13:00 | disposition home or self-care (01) | DRG 189 ==
LOC: ED 18:12 → SSU 02-01 03:07
PROVIDERS: ADMIT Hospitalist; ATTEND Internal Medicine
DX: J96.01 Acute respiratory failure with hypoxia (principal); J18.9 Pneumonia, unspecified organism; J44.1 Chronic obstructive pulmonary disease with (acute) exacerbation; F41.9 Anxiety disorder, unspecified; F17.210 Nicotine dependence, cigarettes, uncomplicated; G47.00 Insomnia, unspecified; Z79.899 Other long term (current) drug therapy; Z81.1 Family history of alcohol abuse and dependence; Z82.8 Family history of other disabilities and chronic diseases leading to disablement, not elsewhere classified; Z82.49 Family history of ischemic heart disease and other diseases of the circulatory system
CPT/HCPCS: 36415; 71010; 71020; 80053; 83605; 83880; 84484; 85025; 85610; 85730; 87040; 87070; 87205; 87502; 87899; 90686; 93005; 94640; 94760; 99406; A9270-GY; J1644; J2920; J2930

== ENCOUNTER 2017-02-05 22:47 | Observation (INO) | payer MEDICARE, BC ==
[2017-02-06] MEDS ORDERED: NS 0.9% 1000 ML* 1,000 ML IV SCH ×2 (00:15→03:45)
[2017-02-06] MEDS ORDERED: Aspirin Low Dose CHEW TAB* 81 MG PO ONE (00:15)
[2017-02-06 00:48] LABS: Hematocrit 37 % (35-47); Hemoglobin 12.5 g/dl (12.0-16.0); Mean Corpuscular HGB Conc 34 g/dl (31-36); Mean Corpuscular Hemoglobin 29 pg (27-31); Mean Corpuscular Volume 86 fL (80-97); Mean Platelet Volume 7 um3 (7.4-10.4); Red Blood Count 4.32 10^6/ul (4.0-5.4); Red Cell Distribution Width 13 % (10.5-15); White Blood Count 12.7 10^3/ul (3.5-10.8)
[2017-02-06 00:52] LABS: Add Diff/Slide Review? Slide Review Added; Comments Flag Yes
[2017-02-06 01:10] LABS: Albumin 3.4 g/dL (3.2-5.2); BUN/Creatinine Ratio 27.8 (8-20); C Reactive Protein 8.55 mg/L (< 5.00); EGFR African American 76.5 (>60); EGFR Non-African American 59.5 (>60); Globulin 3.2 g/dL (2-4); Potassium 3.3 mmol/L (3.5-5.0); Total Bilirubin 0.3 mg/dL (0.2-1.0); Total Protein 6.6 g/dL (6.4-8.9)
[2017-02-06 01:14] LABS: TSH (Thyroid Stimulating Horm) 0.41 mcIU/mL (0.34-5.60)
[2017-02-06] MEDS ORDERED: Iodixanol* (CONTRAST) 320 MG/ML 100 ML SDV IV ONE (02:20)
[2017-02-06 02:58] LABS: Urine Bacteria Absent (Absent)
[2017-02-06] MEDS ORDERED: ALPRAZolam TAB* 0.25 MG PO PRN (03:06)
[2017-02-06] MEDS ORDERED: Albuterol HFA INHALER* 8 gm MDI INH PRN (03:06)
[2017-02-06 03:08] LABS: Urine Bilirubin Negative (Negative); Urine Glucose N (Negative); Urine Nitrite N (Negative)
[2017-02-06] MEDS ORDERED: Acetaminophen TAB* 325 MG PO PRN (03:09)
[2017-02-06] MEDS ORDERED: Morphine INJ* 2 MG/ML 1 ML SYRINGE (TWO MG - NEW SYRINGE VERSION) IV PRN (03:09)
[2017-02-06] MEDS ORDERED: Potassium Chlor TAB* 20 MEQ TAB.ER PO ONE (03:12)
--- NOTE | 2017-02-06 03:56 | ED ---
Yakov Bailey Nikita, scribed for Florentino Mcgee MD on 02/06/17 at 0020 . HPI Chest Pain - HPI Summary HPI Summary: This patient is an 86 year old F presenting to ED with a chief complaint of CP since 2100 last night. The CC is described as tight and non-radiating. The patient rates the pain 1-2/10 in severity. Symptoms aggravated by nothing. Symptoms alleviated by nothing. Patient reports decreased sleep, productive cough (from COPD), decreased appetite, SOB, and swelling in ankles. Patient denies nausea and diaphoresis. Pt was released from hospital 2 days ago for PNA. - History of Current Complaint Chief Complaint: EDChestPainROMI Time Seen by Provider: 02/06/17 00:09 Hx Obtained From: Patient Onset/Duration: Started Days Ago - last night at 2100, Still Present Timing: Constant, Lasting Days Initial Severity: Mild Current Severity: Mild Pain Intensity: 2 Pain Scale Used: 0-10 Numeric Chest Pain Location: Discrete at: - across chest Chest Pain Radiates: No Character: Tightness Aggravating Factor(s): Nothing Alleviating Factor(s): Nothing Associated Signs and Symptoms: Positive: Other: - Patient reports decreased sleep, productive cough (from COPD), decreased appetite, SOB, and swelling in ankles. Patient denies nausea and diaphoresis. - Additional Pertinent History Primary Care Physician: APOLLO - Allergy/Home Medications Allergies/Adverse Reactions: Allergies Allergy/AdvReac Type Severity Reaction Status Date / Time No Known Allergies Allergy Verified 02/06/17 01:47 PMH/Surg Hx/FS Hx/Imm Hx Endocrine/Hematology History: Denies: Hx Diabetes Cardiovascular History: Denies: Hx Congestive Heart Failure, Hx Hypertension Respiratory History: Reports: Hx Chronic Obstructive Pulmonary Disease (COPD), Other Respiratory Problems/Disorders - current SOB with exertion History: Denies: Hx Renal Disease Sensory History: Reports: Hx Contacts or Glasses Denies: Hx Hearing Aid Opthamlomology History: Reports: Hx Contacts or Glasses - Surgical History Surgery Procedure, Year, and Place: gallbladder removal, appy, hysterectomy - Immunization History Date of Tetanus Vaccine: Unknown Infectious Disease History: Unable to Obtain/Confirm Infectious Disease History: Denies: Traveled Outside the [place] in Last 30 Days - Family History Known Family History: Positive: Other - POS: DM, [place] Negative: Hypertension - Social History Alcohol Use: None Substance Use Type: Reports: None Smoking Status (MU): Heavy Every Day Tobacco Smoker Review of Systems Negative: Skin Diaphoresis Positive: Chest Pain - across chest, tight and non-radiating Positive: Shortness Of Breath, Cough - productive Positive: Other - decreased appetite. Negative: Nausea Positive: Other - swelling in ankles All Other Systems Reviewed And Are Negative: Yes Physical Exam Triage Information Reviewed: Yes Vital Signs On Initial Exam: Initial Vitals Temp Pulse Resp BP Pulse Ox 98 F 92 20 159/100 96 02/05/17 22:56 02/05/17 22:56 02/05/17 22:56 02/05/17 22:56 02/05/17 22:56 Vital Signs Reviewed: Yes Appearance: Positive: Well-Appearing, No Pain Distress Skin: Positive: Warm, Skin Color Reflects Adequate Perfusion, Dry Head/Face: Positive: Normal Head/Face Inspection Eyes: Positive: EOMI, CORAL ENT: Positive: Normal ENT inspection Neck: Positive: Supple, Nontender Respiratory/Lung Sounds: Positive: Clear to Auscultation, Breath Sounds Present Cardiovascular: Positive: RRR Abdomen Description: Positive: Nontender, Soft Bowel Sounds: Positive: Present Musculoskeletal: Positive: Strength/ROM Intact, Other - Bilateral pedal edema Neurological: Positive: Normal, Sensory/Motor Intact, Alert, Oriented to Person Place, Time Psychiatric: Positive: Affect/Mood Appropriate - Marcia Coma Scale Coma Scale Total: 15 Diagnostics - Vital Signs Vital Signs Temp Pulse Resp BP Pulse Ox 02/05/17 22:56 98 F 92 20 159/100 96 - Laboratory Lab Results: Lab Results 02/06/17 02/06/17 02/06/17 Range/Units 00:40 00:40 00:40 WBC (3.5-10.8) 10^3/ul RBC (4.0-5.4) 10^6/ul Hgb (12.0-16.0) g/dl Hct (35-47) % MCV (80-97) fL MCH (27-31) pg MCHC (31-36) g/dl RDW (10.5-15) % Plt Count (150-450) 10^3/ul MPV (7.4-10.4) um3 Neut % (Auto) (38-83) % Lymph % (Auto) (25-47) % Hood % (Auto) (1-9) % Eos % (Auto) (0-6) % Baso % (Auto) (0-2) % Absolute Neuts (auto) (1.5-7.7) 10^3/ul Absolute Lymphs (auto) (1.0-4.8) 10^3/ul Absolute Monos (auto) (0-0.8) 10^3/ul Absolute Eos (auto) (0-0.6) 10^3/ul Absolute Basos (auto) (0-0.2) 10^3/ul Absolute Nucleated RBC 10^3/ul Nucleated RBC % INR (Anticoag Therapy) 1.05 (0.89-1.11) APTT 26.1 (26.0-36.3) seconds Sodium 131 L (133-145) mmol/L Potassium 3.3 L (3.5-5.0) mmol/L Chloride 101 (101-111) mmol/L Carbon Dioxide 26 (22-32) mmol/L Anion Gap 4 (2-11) mmol/L BUN 25 H (6-24) mg/dL Creatinine 0.90 (0.51-0.95) mg/dL Est GFR ( Amer) 76.5 (>60) Est GFR (Non-Af Amer) 59.5 (>60) BUN/Creatinine Ratio 27.8 H (8-20) Glucose 143 H (70-100) mg/dL Lactic Acid (0.5-2.0) mmol/L Calcium 9.0 (8.6-10.3) mg/dL Magnesium 2.0 (1.9-2.7) mg/dL Total Bilirubin 0.30 (0.2-1.0) mg/dL AST 12 L (13-39) U/L ALT 18 (7-52) U/L Alkaline Phosphatase 62 (34-104) U/L Troponin I 0.00 (<0.04) ng/mL C-Reactive Protein 8.55 H (< 5.00) mg/L B-Natriuretic Peptide 49 ( - 100) pg/mL Total Protein 6.6 (6.4-8.9) g/dL Albumin 3.4 (3.2-5.2) g/dL Globulin 3.2 (2-4) g/dL Albumin/Globulin Ratio 1.1 (1-3) Lipase 40 (11.0-82.0) U/L TSH 0.41 (0.34-5.60) mcIU/mL Urine Color Urine Appearance Urine pH (5-9) Ur Specific Roy (1.010-1.030) Urine Protein (Negative) Urine Ketones (Negative) Urine Blood (Negative) Urine Nitrate (Negative) Urine Bilirubin (Negative) Urine Urobilinogen (Negative) Ur Leukocyte Esterase (Negative) Urine WBC (Auto) (Absent) Urine RBC (Auto) (Absent) Ur Squamous Epith Cells (Absent) Urine Bacteria (Absent) Urine Glucose (Negative) Urine Ascorbic Acid (Negative) 02/06/17 02/06/17 02/06/17 Range/Units 00:40 00:40 02:41 WBC 12.7 H (3.5-10.8) 10^3/ul RBC 4.32 (4.0-5.4) 10^6/ul Hgb 12.5 (12.0-16.0) g/dl Hct 37 (35-47) % MCV 86 (80-97) fL MCH 29 (27-31) pg MCHC 34 (31-36) g/dl RDW 13 (10.5-15) % Plt Count 343 (150-450) 10^3/ul MPV 7 L (7.4-10.4) um3 Neut % (Auto) 83.8 H (38-83) % Lymph % (Auto) 11.5 L (25-47) % Hood % (Auto) 4.5 (1-9) % Eos % (Auto) 0 (0-6) % Baso % (Auto) 0.2 (0-2) % Absolute Neuts (auto) 10.6 H (1.5-7.7) 10^3/ul Absolute Lymphs (auto) 1.5 (1.0-4.8) 10^3/ul Absolute Monos (auto) 0.6 (0-0.8) 10^3/ul Absolute Eos (auto) 0 (0-0.6) 10^3/ul Absolute Basos (auto) 0 (0-0.2) 10^3/ul Absolute Nucleated RBC 0 10^3/ul Nucleated RBC % 0 INR (Anticoag Therapy) (0.89-1.11) APTT (26.0-36.3) seconds Sodium (133-145) mmol/L Potassium (3.5-5.0) mmol/L Chloride (101-111) mmol/L Carbon Dioxide (22-32) mmol/L Anion Gap (2-11) mmol/L BUN (6-24) mg/dL Creatinine (0.51-0.95) mg/dL Est GFR ( Amer) (>60) Est GFR (Non-Af Amer) (>60) BUN/Creatinine Ratio (8-20) Glucose (70-100) mg/dL Lactic Acid 0.7 (0.5-2.0) mmol/L Calcium (8.6-10.3) mg/dL Magnesium (1.9-2.7) mg/dL Total Bilirubin (0.2-1.0) mg/dL AST (13-39) U/L ALT (7-52) U/L Alkaline Phosphatase (34-104) U/L Troponin I (<0.04) ng/mL C-Reactive Protein (< 5.00) mg/L B-Natriuretic Peptide ( - 100) pg/mL Total Protein (6.4-8.9) g/dL Albumin (3.2-5.2) g/dL Globulin (2-4) g/dL Albumin/Globulin Ratio (1-3) Lipase (11.0-82.0) U/L TSH (0.34-5.60) mcIU/mL Urine Color Straw Urine Appearance Clear Urine pH 6 (5-9) Ur Specific Roy 1.000 L (1.010-1.030) Urine Protein N (Negative) Urine Ketones Negative (Negative) Urine Blood N (Negative) Urine Nitrate N (Negative) Urine Bilirubin Negative (Negative) Urine Urobilinogen N (Negative) Ur Leukocyte Esterase Negative (Negative) Urine WBC (Auto) Absent (Absent) Urine RBC (Auto) Trace(0-2/hpf) (Absent) Ur Squamous Epith Cells Present H (Absent) Urine Bacteria Absent (Absent) Urine Glucose N (Negative) Urine Ascorbic Acid N (Negative) Result Diagrams: 02/06/17 00:40 02/06/17 00:40 Lab Statement: Any lab studies that have been ordered have been reviewed, and results considered in the medical decision making process. - CT CTA chest CT Interpretation Completed By: Radiologist - Negative for pulmonary ebolus. Negative for thoracic aortic aneurysm or dissection. Mininal interstitial changes right lower lobe posterior laterally. Otherwise lungs are clear of acute disease. ED physician has reviewed this radiology report and agrees. - EKG 0227 Cardiac Rate: NL - 72 bpm EKG Rhythm: Sinus Rhythm ST Segment: Normal Ectopy: None Re-Evaluation - Re-Evaluation First Eval Re-Evaluation Time: 02:58 Comment: Pt agrees to admission. Chest Pain Course/Dx - Course Assessment/Plan: This patient is an 86 year old F presenting to ED with a chief complaint of CP since 2100 last night. The CC is described as tight and non- radiating. The patient rates the pain 1-2/10 in severity. Symptoms aggravated by nothing. Symptoms alleviated by nothing. Patient reports decreased sleep, productive cough (from COPD), decreased appetite, SOB, and swelling in ankles. Patient denies nausea and diaphoresis. CTA chest reveals negative for pulmonary ebolus. Negative for thoracic aortic aneurysm or dissection. Mininal interstitial changes right lower lobe posterior laterally. Otherwise lungs are clear of acute disease. ED physician has reviewed this radiology report and agrees. EKG reveals NSR, Normal ST, and no ectopy. In the ED course, pt was given fluids and ASA. Medications reviewed. Pt will be admitted to [facility] [place]. Pt is agreeable with this plan. ADMIT HOSPITALIST. NO CRITICAL CARE TIME. - Diagnoses Provider Diagnoses: Chest pain Discharge - Discharge Plan Condition: Stable Disposition: ADMITTED TO [facility] documentation as recorded by the Yakov blanchard Nikita accurately reflects the service I personally performed and the decisions made by me, Floretnino Mcgee MD.
[2017-02-06] MEDS: Heparin VIAL(*) 5000 UNITS/ML VIAL (FIVE THOUSAND) SUBCUT SCH ×2 (05:46→14:12)
--- NOTE | 2017-02-06 05:56 | HP ---
CC: Coreen Zavala MD * HISTORY AND PHYSICAL: DATE OF ADMISSION: 02/06/17 PRIMARY CARE PROVIDER: Coreen Zavala MD CHIEF COMPLAINT: Chest pain. HISTORY OF PRESENT ILLNESS: Ms. Fuchs is an 86-year-old female with history of COPD and recent diagnosis of pneumonia for which she was admitted to the hospital for 2 days and discharged on 02/03/17 with a course of prednisone and Levaquin who presented to the hospital today complaining of chest pain. The patient stated that at approximately 9 p.m., when she was getting ready to bed, she started experiencing upper chest discomfort, nonradiating, localized at her upper chest. She lay on bed and she continued to feel the chest discomfort for approximately 15 to 20 minutes. The chest pain resolved spontaneously. There were no associating factors with it and there was no shortness of breath or cough. The pain was not pleuritic and did not change with movement. Once again , it resolved spontaneously after 15 to 20 minutes. The patient came to the ED for evaluation where her initial workup was unremarkable. Troponin was negative and EKG showed no active changes. Dr. Mcgee requested for the patient to be observed on telemetry monitoring bed with stress test in the morning. PAST MEDICAL HISTORY: 1. Recent diagnosis of pneumonia. The patient is still on Levaquin and prednisone. 2. History of COPD with history of COPD exacerbation, continued on prednisone. 3. Status post cataract surgery bilaterally. 4. History of cholecystectomy. 5. History of appendectomy. 6. History of hysterectomy. MEDICATIONS: Are unchanged from the discharge 2 days ago and include: 1. Prednisone 30 mg daily. 2. Guaifenesin 1200 mg b.i.d. 3. Ambien 10 mg at bedtime. 4. Spiriva 1 inhalation daily. 5. Omeprazole 20 mg daily. 6. Levofloxacin 750 mg daily. 7. Albuterol inhaler 2 puffs on a p.r.n. basis. 8. Xanax 0.25 mg every 8 hours p.r.n. SOCIAL HISTORY: The patient smokes 1 pack per day and she started when she was a teenager. She denies any alcohol or recreational drug use. She is and lives with her son, who is her surrogate. FAMILY HISTORY: Positive for mother with history of Alzheimer's, at the age of 87. Father secondary to alcoholism in his 70's. REVIEW OF SYSTEMS: Please see history of present illness. The patient stated that her breathing has markedly improved and she coughed with phlegm and she uses incentive spirometry. She continues to smoke. She stated that she is in a stressful situation at home with her family. She had been ambulating without any problems and no assistance. Other remaining 14 systems reviewed with the patient and were otherwise negative. PHYSICAL EXAMINATION VITAL SIGNS: Blood pressure of 117/59, heart rate of 56 and regular, respiratory rate of 21, oxygen saturation 92% on room air, temperature 98.0. GENERAL: The patient is a very pleasant 86-year-old female, who is in no acute distress. Alert, awake, and oriented x3. HEENT: Head atraumatic, normocephalic. Eyes: Pupils are equal and reactive to light and accommodation. Oropharynx is clear. Mucosa moist. NECK: Supple, no JVD, no bruits bilaterally. RESPIRATORY: Coarse breath sounds at bilateral bases, otherwise clear. CARDIOVASCULAR: Regular rate and rhythm. No murmurs. ABDOMEN: Soft, nontender. Bowel sounds present in all 4 quadrants. EXTREMITIES: There is trace bilateral pedal edema. Pulses are +2 bilaterally. There is no clubbing or cyanosis. SKIN: On evaluation of the skin, no rashes noted. NEURO EVALUATION: Speech is clear. Cranial nerves II through XII are grossly intact. Motor strength is 5/5 bilaterally. PSYCHIATRIC EVALUATION: Pleasant, cooperative with evaluation, oriented x3, but sometimes forgetful with no evidence of anxiety or depression. DIAGNOSTIC STUDIES/LAB DATA: Laboratory data showed white blood cell count of 12.7, hemoglobin of 12.5, hematocrit of 37, and platelets of 343. Sodium of 131, potassium 3.3, chloride 101, carbon dioxide 26, BUN 25, creatinine 0.9. Liver function tests were unremarkable. C-reactive protein of 8.5. Troponin of 0. TSH of 0.4. Urinalysis grossly unremarkable. CT angiogram of the chest showed no evidence of PE and resolving right lung pneumonia. The patient's EKG showed normal sinus rhythm with a heart rate of 72 beats per minute with no ST changes. ASSESSMENT AND PLAN: 1. In regards to patient's chest pain, so far the patient 's workup had been unremarkable. At this point, the patient is going to be observed on telemetry monitoring bed with serial troponins, which if they continue to negative, she is going to undergo a treadmill stress test in the morning. 2. In regards to patient's chronic obstructive pulmonary disease, the patient does not appear in exacerbation. She is going to be continued on prednisone that prednisone taper has been prescribed on discharge. We will also continue her inhalers. 3. In regards to patient's pneumonia, Levaquin is going to be continued as prescribed in discharge. 4. In regards to DVT prophylaxis, the patient is going to be placed on heparin subcutaneously. 5. The patient's code status is full and her surrogate is her son. TIME SPENT: Approximately 65 minutes was spent on admission of this patient. More than half of that time was spent [id number] with the patient during the interview and physical exam. [id number]/[facility] #: [id number] [place]
[2017-02-06] MEDS ORDERED: Omeprazole CAP* 20 MG PO SCH (06:00)
--- NOTE | 2017-02-06 08:17 | RAD ---
HISTORY: Chest pain COMPARISONS: December 24, 2013 TECHNIQUE: Multiple contiguous axial CT scans of the chest were obtained after the administration of nonionic intravenous contrast, timed to the pulmonary arterial phase of contrast enhancement.. Coronal and sagittal multiplanar reformations are also submitted for review. FINDINGS: Evaluation is limited by patient breathing motion artifact. NECK AND THYROID: The lower neck and thyroid are unremarkable. CHEST WALL: There is no lower cervical, axillary, or supraclavicular lymphadenopathy by size criteria. HEART AND PERICARDIUM: The heart is unremarkable. AORTA AND PULMONARY VASCULATURE: There is no pulmonary arterial filling defect to suggest pulmonary embolism. There is no linear filling defect within the aorta to suggest aortic dissection. MEDIASTINUM: There is no mediastinal lymphadenopathy by size criteria. KOMAL: There is no hilar lymphadenopathy by size criteria. AIRWAY AND ESOPHAGUS: The airway is unremarkable, without endobronchial filling defect. The esophagus is grossly normal. LUNG PARENCHYMA: There is centrilobular emphysematous change. There is patchy groundglass opacification of the right lung base.. This area is obscured on the previous examination. PLEURA: No pleural abnormalities are noted. UPPER ABDOMEN: There is a 1.5 cm right adrenal adenoma. BONES AND SOFT TISSUES: No bone or soft tissue abnormalities are noted. OTHER: None. IMPRESSION: 1. NO PULMONARY ARTERIAL FILLING DEFECTS TO SUGGEST PULMONARY EMBOLISM. 2. EMPHYSEMA. 3. MILD AIRSPACE DISEASE OF THE RIGHT LUNG BASE. RECOMMEND FOLLOW-UP UNTIL RESOLUTION TO EXCLUDE UNDERLYING PULMONARY PARENCHYMAL PATHOLOGY.
[2017-02-06] MEDS ORDERED: predniSONE TAB* 10 MG PO SCH (09:00)
[2017-02-06] MEDS ORDERED: Levofloxacin TAB* 750 MG PO SCH (09:00)
[2017-02-06] MEDS ORDERED: Spiriva Inhaler DEVICE* 1 EACH DEVICE INH ONE (09:00)
[2017-02-06] MEDS ORDERED: guaiFENesin ER TAB 600 MG PO SCH (09:00)
[2017-02-06] MEDS ORDERED: Tiotropium CAP.INH* CAP.INH/18 MCG (USE ORDER SET !) INH SCH (09:00)
[2017-02-06] MEDS ORDERED: Aminophylline IV* 25 MG/ML 10 ML VIAL ONE (10:34)
[2017-02-06] MEDS ORDERED: Regadenoson* 0.4 MG/5 ML SYRINGE ONE (10:34)
--- NOTE | 2017-02-06 12:44 | RAD ---
Edited for charges. Indication: Chest pain. Myocardial perfusion scan was performed utilizing 1 day protocol. Rest myocardial perfusion was performed after intravenous injection of 10.6 mCi of technetium 99m tetrofosmin. Treadmill stress study was performed and the maximum heart rate achieved was 69% of the maximum predicted value. 25.7 mCi of technetium 99m tetrofosmin was injected for the stress portion of the study. There is homogeneous distribution of the radiotracer throughout the left centered. There is no evidence of a fixed or reversible perfusion defect identified. The ejection fraction at stress is 82%. Evaluation of wall motion demonstrates no focal wall motion abnormality. IMPRESSION: No evidence of fixed or reversible perfusion defect is identified. Normal ejection fraction. ASSESSMENT: Low risk Based on imaging criteria from ACC/AHA 2002 Guideline Update for the Management of Patients With Chronic Stable Angina Table 23. Noninvasive Risk Stratification. Reference. MTDD
[2017-02-06 15:57] VITALS: BP 133/62
[2017-02-06] MEDS ORDERED: Zolpidem TAB* 10 MG PO SCH (21:00)
--- NOTE | 2017-02-07 15:34 | DS ---
DISCHARGE SUMMARY: DATE OF ADMISSION: 02/06/17 DATE OF DISCHARGE: 02/06/17 ADMITTING PHYSICIAN: Malika Rivera MD. PRIMARY CARE PROVIDER: Coreen Zavala MD. CHIEF COMPLAINT: Right shoulder pain. PRINCIPAL DIAGNOSES: Musculoskeletal pain; acute coronary syndrome ruled out, recent diagnosis of pneumonia versus chronic obstructive pulmonary disease exacerbation. HISTORY OF PRESENT ILLNESS AND HOSPITAL COURSE: Ms. Fuchs is an 86-year-old female with past medical history of COPD with chronic smoking, recent diagnosis of pneumonia. The patient has been also undergoing a lot of stress at home due to family issues, which she did not elaborate "was very depressed." The patient was just discharged on 02/03/17 on the course of prednisone and Levaquin. She attests that she had right shoulder pain possibly from sleeping on it on her right side. The admitting H and P described description of upper chest discomfort, which lasted 15 to 20 minutes and then resolved spontaneously , no radiation, not pleuritic, no change with movement. Troponins were trended and were negative x4. EKG showed no ischemic changes. The patient was observed on telemetry overnight and underwent nuclear stress test in the morning , which was seen low risk and the EF was above 80%. In the ED, the patient had a CT chest angiogram, which demonstrated no evidence of pulmonary embolism, but evidence of emphysema and mild airspace disease of the right lung base with patchy ground-glass opacities. The patient was discharged on continuation of her Levaquin and prednisone taper and strongly urged to quit smoking and to follow with her [place] microchip specialist, Dr. Hodgson. The patient was also educated that her Spiriva inhaler was meant to be taken daily and not as needed when feeling more poorly. MEDICATIONS ON DISCHARGE: Unchanged, include: 1. Prednisone taper currently 30 mg daily. 2. Guaifenesin 1200 mg b.i.d. 3. Ambien 10 mg q.h.s. 4. Spiriva 1 inhalation daily. 5. Omeprazole 20 mg daily. 6. Levaquin 750 mg daily. 7. Albuterol inhaler 2 puffs p.r.n. 8. Xanax 0.25 mg every 8 hours p.r.n. DISPOSITION: Home. DIET: Regular, unchanged. FOLLOWUP: The patient will need to follow up with Dr. Zavala, Dr. Hodgson. [id number] #: [id number] MTDJack
== END 2017-02-06 18:35 | disposition home or self-care (01) ==
LOC: ED 22:47 → MEDTELE 02-06 03:05
PROVIDERS: ADMIT Internal Medicine; ATTEND Internal Medicine
DX: M25.511 Pain in right shoulder (principal); R07.9 Chest pain, unspecified; R06.02 Shortness of breath; J44.9 Chronic obstructive pulmonary disease, unspecified; F17.210 Nicotine dependence, cigarettes, uncomplicated; J18.9 Pneumonia, unspecified organism; Z79.899 Other long term (current) drug therapy
CPT/HCPCS: 36415; 71275; 78452; 80053; 81003; 83605; 83690; 83735; 83880; 84443; 84484; 85025; 85610; 85730; 86140; 93005; 93017; 94640; 96360; 96361; 96372; 99284; A9270-GY; A9502; G0378; J0280; J1644; J2785; J7512; Q9967

== ENCOUNTER 2017-03-06 14:57 | Inpatient (IN) | payer MEDICARE, BC ==
[2017-03-06] MEDS ORDERED: Levofloxacin 750 MG IVPREMIX(* 750 MG/150 ML BAG IVPB ONE (15:30)
[2017-03-06] MEDS: NS 0.9% 1000 ML* 2,000 ML IV ONE (15:35)
--- NOTE | 2017-03-06 16:05 | RAD ---
Indication: Shortness of breath, chest pain, cough. Shaking chills. Pneumonia 3 weeks ago. History of tobacco use. Comparison: February 06, 2017 CT and January 31, 2017 chest radiograph. Technique: Upright AP 1536 hours Report: Elevated lung volumes and both diffuse mild prominence of the interstitial markings and patchy rarefaction of the mid to upper lung zone interstitial markings. New airspace consolidation involving the anterior segment of the RIGHT upper lobe extending to the minor fissure. Negative for volume loss to suggest atelectasis. Additional mild alveolar consolidation in the periphery of the LEFT midlung zone and at the bilateral lung bases. Negative for pleural effusions. Negative for pneumothorax. The heart, pulmonary vasculature, and mediastinal contours are unremarkable. IMPRESSION: 1. The constellation of findings favors bronchopneumonia with new areas of consolidation compared with the January 31, 2017 exam. 2. Stigmata of chronic obstructive pulmonary disease.
[2017-03-06 17:02] LABS: Hematocrit 33 % (35-47); Hemoglobin 10.8 g/dl (12.0-16.0); Mean Corpuscular HGB Conc 33 g/dl (31-36); Mean Corpuscular Hemoglobin 28 pg (27-31); Mean Corpuscular Volume 85 fL (80-97); Mean Platelet Volume 7 um3 (7.4-10.4); Red Blood Count 3.87 10^6/ul (4.0-5.4); Red Cell Distribution Width 14 % (10.5-15); White Blood Count 10.5 10^3/ul (3.5-10.8)
[2017-03-06 17:18] LABS: BUN/Creatinine Ratio 15.3 (8-20); C Reactive Protein 93.3 mg/L (< 5.00); Calcium 8.1 mg/dL (8.6-10.3); EGFR African American 124.6 (>60); EGFR Non-African American 96.9 (>60); Globulin 3.2 g/dL (2-4); Potassium 3.7 mmol/L (3.5-5.0); Total Bilirubin 0.3 mg/dL (0.2-1.0); Total Protein 6.2 g/dL (6.4-8.9)
[2017-03-06 17:19] LABS: Troponin I 0.01 ng/mL (<0.04)
[2017-03-06] MEDS ORDERED: Albuterol 2.5 MG/3 ML NEB.SOL* (0.083%) INH PRN (18:09)
[2017-03-06] MEDS ORDERED: Acetaminophen TAB* 325 MG PO PRN (18:09)
[2017-03-06] MEDS ORDERED: Zolpidem TAB* 5 MG PO PRN (18:11)
[2017-03-06] MEDS ORDERED: NS 0.9% 1000 ML* 1,000 ML IV SCH (18:15)
[2017-03-06] MEDS ORDERED: Albuterol/Ipratropium NEB.SOL* Albuterol 2.5 MG/Ipratropium 0.5 MG 3 ML INH SCH (19:00)
--- NOTE | 2017-03-06 19:45 | ED ---
Julio Bailey Nilda, scribed for Joseph Slade MD on 03/06/17 at 1528 . Complex/Multi-Sys Presentation - HPI Summary HPI Summary: This patient is an 86 year old F presenting to [facility] with a chief complaint of malaise since 5 days ago. Patient called PCP who recommended that she come to ED. Symptoms aggravated and alleviated by nothing. Patient reports severe episode of diarrhea (5 days ago, resolved), fever, chills, and cough (currently not present, associated with COPD). Patient denies issues with urination, edema , pain, and dyspnea. Three weeks ago, patient was diagnosed with pneumonia and is still currently on antibiotics. - History Of Current Complaint Chief Complaint: EDShortnessOfBreath Time Seen by Provider: 03/06/17 15:17 Hx Obtained From: Patient Onset/Duration: Sudden Onset, Lasting Days - 5 days, Still Present Timing: Constant Severity Currently: Moderate Aggravating Factor(s): nothing Alleviating Factor(s): nothing Associated Signs And Symptoms: Positive: Other - severe episode of diarrhea (5 days ago, resolved), fever, chills, and cough (COPD, currently not present). Patient denies issues with urination, edema, pain, and dyspnea. Related History: Recent Illness - Three weeks ago patient diagnosed with PNA - Allergies/Home Medications Allergies/Adverse Reactions: Allergies Allergy/AdvReac Type Severity Reaction Status Date / Time Penicillins [PCN] Allergy Shortness Verified 03/06/17 15:08 of Breath Home Medications: Home Medications Albuterol/Ipratropium NEB.ROSEMARY* [Duoneb (Albuterol 2.5 MG/Ipratropium 0.5 MG)] 1 neb INH Q4H PRN 03/06/17 [History Confirmed 03/06/17] Budesonide/Formote 160/4.5(NF) [Symbicort 160/4.5 (NF)] 2 puff INH BID 03/06/17 [History Confirmed 03/06/17] Mirtazapine TAB* [Remeron TAB*] 15 mg PO BEDTIME 03/06/17 [History Confirmed ] Zolpidem TAB* [Ambien TAB*] 5 mg PO BEDTIME PRN 03/06/17 [History Confirmed ] PMH/Surg Hx/FS Hx/Imm Hx Endocrine/Hematology History: Denies: Hx Diabetes Cardiovascular History: Reports: Hx Angina Denies: Hx Congestive Heart Failure, Hx Coronary Artery Disease, Hx Hypercholesterolemia, Hx Hypertension, Hx Myocardial Infarction Respiratory History: Reports: Hx Chronic Obstructive Pulmonary Disease (COPD), Hx Pneumonia, Other Respiratory Problems/Disorders - current SOB with exertion History: Denies: Hx Renal Disease Sensory History: Reports: Hx Cataracts - cataract removal, Hx Contacts or Glasses, Hx Macular Degeneration, Hx Hearing Problem Denies: Hx Hearing Aid Opthamlomology History: Reports: Hx Cataracts - cataract removal, Hx Contacts or Glasses, Hx Macular Degeneration Neurological History: Reports: Other Neuro Impairments/Disorders - familial tremors Psychiatric History: Reports: Hx Depression - Surgical History Surgery Procedure, Year, and Place: gallbladder removal, appy, hysterectomy - Immunization History Date of Tetanus Vaccine: Unknown Infectious Disease History: No Infectious Disease History: Denies: Traveled Outside the [place] in Last 30 Days - Family History Known Family History: Positive: Other - POS: DM, [place] Negative: Hypertension, Diabetes - Social History Alcohol Use: None Substance Use Type: Reports: None Smoking Status (MU): Heavy Every Day Tobacco Smoker Type: Cigarettes Amount Used/How Often: half pack a day (last smoked on 02/04) Have You Smoked in the Last Year: Yes Review of Systems Positive: Fever, Chills, Other - malaise; negative pain Positive: Cough, Other - negative dyspnea Positive: Diarrhea - 5 days ago, resolved Positive: other - negative abnormal urinary symptoms Negative: Edema All Other Systems Reviewed And Are Negative: Yes Physical Exam Triage Information Reviewed: Yes Vital Signs On Initial Exam: Initial Vitals Temp Pulse Resp BP Pulse Ox 98.9 F 125 24 149/77 92 03/06/17 15:04 03/06/17 15:04 03/06/17 15:04 03/06/17 15:04 03/06/17 15:04 Vital Signs Reviewed: Yes Appearance: Positive: Well-Appearing, No Pain Distress Skin: Positive: Warm, Skin Color Reflects Adequate Perfusion, Dry Head/Face: Positive: Normal Head/Face Inspection Eyes: Positive: Normal ENT: Positive: Normal ENT inspection Neck: Positive: Supple, Nontender Respiratory/Lung Sounds: Positive: Breath Sounds Present, Other - Crackles in bilateral base, suggestion of right upper lobe egophony Cardiovascular: Positive: Tachycardia Abdomen Description: Positive: Nontender, Soft Bowel Sounds: Positive: Present Musculoskeletal: Positive: Normal Neurological: Positive: Normal Psychiatric: Positive: Normal, Affect/Mood Appropriate Diagnostics - Vital Signs Vital Signs Temp Pulse Resp BP Pulse Ox 03/06/17 15:04 98.9 F 125 24 149/77 92 - Laboratory Lab Results: Lab Results 03/06/17 03/06/17 03/06/17 Range/Units 16:40 16:40 16:40 WBC 10.5 (3.5-10.8) 10^3/ul RBC 3.87 L (4.0-5.4) 10^6/ul Hgb 10.8 L (12.0-16.0) g/dl Hct 33 L (35-47) % MCV 85 (80-97) fL MCH 28 (27-31) pg MCHC 33 (31-36) g/dl RDW 14 (10.5-15) % Plt Count 315 (150-450) 10^3/ul MPV 7 L (7.4-10.4) um3 Neut % (Auto) 74.5 (38-83) % Lymph % (Auto) 14.6 L (25-47) % [place] % (Auto) 9.2 H (1-9) % Eos % (Auto) 1.3 (0-6) % Baso % (Auto) 0.4 (0-2) % Absolute Neuts (auto) 7.8 H (1.5-7.7) 10^3/ul Absolute Lymphs (auto) 1.5 (1.0-4.8) 10^3/ul Absolute Monos (auto) 1.0 H (0-0.8) 10^3/ul Absolute Eos (auto) 0.1 (0-0.6) 10^3/ul Absolute Basos (auto) 0 (0-0.2) 10^3/ul Absolute Nucleated RBC 0 10^3/ul Nucleated RBC % 0 INR (Anticoag Therapy) 1.08 (0.89-1.11) Sodium 132 L (133-145) mmol/L Potassium 3.7 (3.5-5.0) mmol/L Chloride 102 (101-111) mmol/L Carbon Dioxide 25 (22-32) mmol/L Anion Gap 5 (2-11) mmol/L BUN 9 (6-24) mg/dL Creatinine 0.59 (0.51-0.95) mg/dL Est GFR ( Amer) 124.6 (>60) Est GFR (Non-Af Amer) 96.9 (>60) BUN/Creatinine Ratio 15.3 (8-20) Glucose 116 H (70-100) mg/dL Lactic Acid (0.5-2.0) mmol/L Calcium 8.1 L (8.6-10.3) mg/dL Total Bilirubin 0.30 (0.2-1.0) mg/dL AST 10 L (13-39) U/L ALT 10 (7-52) U/L Alkaline Phosphatase 60 (34-104) U/L Troponin I 0.01 (<0.04) ng/mL C-Reactive Protein 93.30 H (< 5.00) mg/L Total Protein 6.2 L (6.4-8.9) g/dL Albumin 3.0 L (3.2-5.2) g/dL Globulin 3.2 (2-4) g/dL Albumin/Globulin Ratio 0.9 L (1-3) Influenza A (Rapid) (Negative) Influenza B (Rapid) (Negative) 03/06/17 03/06/17 Range/Units 16:40 18:24 WBC (3.5-10.8) 10^3/ul RBC (4.0-5.4) 10^6/ul Hgb (12.0-16.0) g/dl Hct (35-47) % MCV (80-97) fL MCH (27-31) pg MCHC (31-36) g/dl RDW (10.5-15) % Plt Count (150-450) 10^3/ul MPV (7.4-10.4) um3 Neut % (Auto) (38-83) % Lymph % (Auto) (25-47) % [place] % (Auto) (1-9) % Eos % (Auto) (0-6) % Baso % (Auto) (0-2) % Absolute Neuts (auto) (1.5-7.7) 10^3/ul Absolute Lymphs (auto) (1.0-4.8) 10^3/ul Absolute Monos (auto) (0-0.8) 10^3/ul Absolute Eos (auto) (0-0.6) 10^3/ul Absolute Basos (auto) (0-0.2) 10^3/ul Absolute Nucleated RBC 10^3/ul Nucleated RBC % INR (Anticoag Therapy) (0.89-1.11) Sodium (133-145) mmol/L Potassium (3.5-5.0) mmol/L Chloride (101-111) mmol/L Carbon Dioxide (22-32) mmol/L Anion Gap (2-11) mmol/L BUN (6-24) mg/dL Creatinine (0.51-0.95) mg/dL Est GFR ( Amer) (>60) Est GFR (Non-Af Amer) (>60) BUN/Creatinine Ratio (8-20) Glucose (70-100) mg/dL Lactic Acid 1.0 (0.5-2.0) mmol/L Calcium (8.6-10.3) mg/dL Total Bilirubin (0.2-1.0) mg/dL AST (13-39) U/L ALT (7-52) U/L Alkaline Phosphatase (34-104) U/L Troponin I (<0.04) ng/mL C-Reactive Protein (< 5.00) mg/L Total Protein (6.4-8.9) g/dL Albumin (3.2-5.2) g/dL Globulin (2-4) g/dL Albumin/Globulin Ratio (1-3) Influenza A (Rapid) Negative (Negative) Influenza B (Rapid) Negative (Negative) Result Diagrams: 03/06/17 16:40 03/06/17 16:40 Lab Statement: Any lab studies that have been ordered have been reviewed, and results considered in the medical decision making process. - Radiology CXR Radiology Interpretation Completed By: Radiologist - 1. The constellation of findings favors bronchopneumonia with new areas of consolidation compared with the January 31, 2017 exam. 2. Stigmata of chronic obstructive pulmonary disease. ED physician has reviewed this radiology report and agrees. - EKG 1508 Cardiac Rate: Tachycardia - 117bpm EKG Rhythm: Sinus Tachycardia EKG Interpretation: No STEMI EKG Comparison: Other - Tachycardic from 02/06/17 Complex Multi-Symp Course/Dx Course Of Treatment: Ms. Fuchs met sepsis criteria on arrival and was treated with fluids and antibiotics. She improved and is being admitted to the hospitalist service. - Diagnoses Provider Diagnoses: Sepsis, Pneumonia - Physician Notifications Discussed Care Of Patient With: Naz Lauren - Hospitalist Time Discussed With Above Provider: 18:05 Instructed by Provider To: Admit As Inpatient - Critical Care Time Critical Care Time: 30-74 min Discharge - Discharge Plan Condition: Stable Disposition: ADMITTED TO [facility] Referrals: Coreen Zavala MD [Primary Care Provider] - The documentation as recorded by the Julio blanchard Nilda accurately reflects the service I personally performed and the decisions made by , Joseph Slade MD.
[2017-03-06] MEDS: Mometasone/Formoter 200/5 MDI INH SCH (20:10)
[2017-03-06] MEDS: predniSONE TAB* 20 MG PO SCH (20:50)
[2017-03-06] MEDS: Heparin VIAL(*) 5000 UNITS/ML VIAL (FIVE THOUSAND) SUBCUT SCH (20:50)
[2017-03-06] MEDS: Mirtazapine TAB* 15 MG PO SCH (20:51)
[2017-03-06 23:03] LABS: Urine Bilirubin Negative (Negative); Urine Glucose Negative (Negative); Urine Nitrite Negative (Negative)
--- NOTE | 2017-03-06 23:23 | HP ---
CC: Dr. Zavala * HISTORY AND PHYSICAL: DATE OF ADMISSION: 03/06/17 PRIMARY CARE PROVIDER: Dr. Zavala. ATTENDING PHYSICIAN WHILE IN THE HOSPITAL: Naz Mccartney MD * (report dictated by Marco A Dillon NP). CHIEF COMPLAINT: 1. Cough. 2. Shortness of breath. 3. Chills. HISTORY OF PRESENT ILLNESS: Ms. Fuchs is an 86-year-old female patient. She has a history of pneumonia recurrently. She states she had pneumonia about a month ago. She has a history of COPD and macular degeneration. She comes in today stating that over the weekend she felt well. She had 1 episode of diarrhea on Saturday after going out to eat. She just said she was feeling unwell yesterday evening and then today she was going out to do errand, she came back and she could not get warm. She was chilled. No matter what she did , she just was feeling chilled, could not get warm. She states that she has no cough, no rhinorrhea, no sore throat. She said she had no cough in the last few days, but she thinks she is starting one now. She does state she feels short of breath, but it is no more than her baseline. She denies any chest pain. Denies having any back pain. No pain with taking deep breath. She was concerned because she just was not feeling well. She talked to her son. With her history of pneumonia, she decided to come into our ER and be evaluated. She came in, was evaluated, it was noted on imaging that she appeared to have pneumonia again, so we were asked to evaluate for admission. PAST MEDICAL HISTORY: Significant for: 1. Pneumonia. 2. COPD. 3. Macular degeneration. PAST SURGICAL HISTORY: 1. The patient has had a cholecystectomy. 2. Appendectomy. 3. Hysterectomy. 4. Cataracts. MEDICATIONS: Include: 1. Ambien 5 mg at bedtime as needed. 2. Spiriva 1 capsule inhaled daily. 3. Prilosec 20 mg daily. 4. Remeron 15 mg p.o. at bedtime. 5. Albuterol 2 puffs inhale every 4 hours as needed. ALLERGIES: To medications include PENICILLIN. FAMILY HISTORY: Mother had a history of dementia. Father had a history of ETOH abuse. SOCIAL HISTORY: She is a pack a day smoker. She does not drink alcohol. She has 3 children. Surrogate decision maker is her son, Serjio. REVIEW OF SYSTEMS: There is documented fever here. She did admit to having chills. No documented fevers at home. She denied having any double vision. No ear discharge. No rhinorrhea. No sore throat. No thyroid enlargement. Denied having any chest pain. No orthopnea. No nocturnal dyspnea. There is shortness of breath with exertion, but she states that it feels like it is at her baseline. She denied having any abdominal discomfort. There is no nausea, no vomiting. There was some diarrhea. No dysuria. There was no frequency or any seizure. No loss of consciousness. No pruritus and no skin ulcerations. Review of 14 systems was completed; all others negative. PHYSICAL EXAMINATION GENERAL: At this time, Ms. Fuchs is an 86-year-old female patient. She is sitting in the ER stretcher. She does not appear to be in any acute distress. VITAL SIGNS: Blood pressure 108/58 with pulse of 101, respirations 18, O2 sat 94%, and temperature 100.3. HEENT: Head: Atraumatic, normocephalic. Eyes: EOMs are intact. Sclerae are anicteric and not pale. Throat: Oral mucosa appears to be dry. No oropharyngeal erythema. NECK: Supple. LUNGS: She had wheezing noted in the upper lobes. She had crackles on the right side. She had equal diaphragmatic expansion. HEART: Sounds S1, S2. Regular rate and rhythm. No murmurs, rubs, or gallops. ABDOMEN: Soft, flat, nontender. Bowel sounds were present. EXTREMITIES: Pulses are 2+ throughout. She is moving all 4 extremities with 5/ 5 strength. NEUROLOGIC: She is awake, alert, and oriented x3. Tongue was midline. Laundry Equipment Operator were equal. No gross focal deficits. SKIN: Intact. LABORATORY DATA/DIAGNOSTIC STUDIES: Labs revealed a WBC of 10.5, RBC of 3.87, hemoglobin 10.8, hematocrit 33, and a platelet count of 315,000. INR 1.08. Sodium 132, potassium 3.7, chloride of 102, bicarb 25, BUN 9, creatinine 0.59, and glucose 116. Lactate 1. Calcium 8.1. Total bili 0.3, AST 10, ALT 10, alk phos 60. Troponin 0.01. CRP 93. Albumin of 3.0. She did have a chest x-ray obtained today, impression: Constellation of findings favors bronchopneumonia with new areas of consolidation compared to exam. She had an EKG obtained today as well, which revealed, they are calling it atrial fibrillation, but to me it looks like sinus tachycardia with artifact, rate of 117. On the monitor now, she is noted to be in a normal sinus rhythm. There is no ST elevation or T-wave inversions. It was reviewed with the previous EKG. She is tachycardic now. Old medical records were reviewed. ASSESSMENT AND PLAN: Ms. Fuchs is an 86-year-old female patient coming in to the ED today with complaints of cough, chills, and not feeling well. She will be admitted under inpatient status for: 1. Pneumonia with chronic obstructive pulmonary disease exacerbation. At this point, I am going to put her on Levaquin, put her on nebs standing, p.r.n. albuterol, steroids. Flutter valve has been ordered. I also did order some Dulera for the patient. She states she is on Symbicort at home and again we will continue with aggressive pulmonary toileting. I did order the respiratory driven protocol and we will continue to follow. Again, antibiotics. Blood cultures have been found, we will get Legionella antigen, we will strep pneumo antigen and sputum cultures. 2. Macular degeneration. Follow with her primary. 3. DVT prophylaxis. Heparin subcu. 4. Code status. She wishes to be a DNR. She states she has filled one out in the past here. We will try to get those records. If not, we will fill out a MOLST with her. 5. Fluid, electrolytes, and nutrition. She could be on a regular diet. TIME SPENT: On the admission 60 minutes, greater than half the time spent face- to- face with the patient obtaining my history and physical, other half time spent going over the plan of care with the patient and implementing plan of care. I did discuss the plan of care with my attending, Dr. Mccartney; she is in agreement. MARCO A DILLON, MICHELLE [id number]/[facility] #: [id number] [place]
[2017-03-07] MEDS: Albuterol/Ipratropium NEB.SOL* Albuterol 2.5 MG/Ipratropium 0.5 MG 3 ML INH SCH ×4 (01:20→18:13)
[2017-03-07] MEDS: Heparin VIAL(*) 5000 UNITS/ML VIAL (FIVE THOUSAND) SUBCUT SCH ×3 (06:42→22:00)
[2017-03-07] MEDS: Omeprazole CAP* 20 MG PO SCH (06:42)
[2017-03-07 07:02] LABS: Hematocrit 36 % (35-47); Hemoglobin 11.7 g/dl (12.0-16.0); Mean Corpuscular HGB Conc 32 g/dl (31-36); Mean Corpuscular Hemoglobin 28 pg (27-31); Mean Corpuscular Volume 86 fL (80-97); Mean Platelet Volume 8 um3 (7.4-10.4); Red Blood Count 4.22 10^6/ul (4.0-5.4); Red Cell Distribution Width 13 % (10.5-15); White Blood Count 7.8 10^3/ul (3.5-10.8)
[2017-03-07 07:16] LABS: Calcium 8.8 mg/dL (8.6-10.3); EGFR Non-African American 107.3 (>60); Potassium 4.1 mmol/L (3.5-5.0)
[2017-03-07] MEDS: predniSONE TAB* 20 MG PO SCH (08:24)
[2017-03-07] MEDS: Mometasone/Formoter 200/5 MDI INH SCH ×2 (11:56→20:46)
--- NOTE | 2017-03-07 12:51 | PN ---
Subjective Date of Service: 03/07/17 Interval History: HOSPITALIST PROGRESS NOTE Patient seen and examined at bedside. She feels a little better today, but still has dyspnea and moist cough. A lot of anxiety due to family turmoil (financial issues with her granddaughter/ fiancee) certainly playing a role on her symptoms. Family History: Unchanged from Admission Social History: Unchanged from Admission Past Medical History: Unchanged from Admission Objective Active Medications: Acetaminophen (Tylenol Tab*) 650 mg PO Q4H PRN PRN Reason: FEVER/PAIN Albuterol (Ventolin 2.5 Mg/3 Ml Neb.Ivy*) 2.5 mg INH Q2H PRN PRN Reason: SOB/WHEEZING Albuterol/Ipratropium (Duoneb (Albuterol 2.5 Mg/Ipratropium 0.5 Mg)) 1 neb INH [id number] AWAKE [facility] Last Admin: 03/07/17 12:30 Dose: 1 neb Heparin Sodium (Porcine) (Heparin Vial(*)) 5,000 units SUBCUT Q8HR [facility] Last Admin: 03/07/17 06:42 Dose: 5,000 units Levofloxacin/Dextrose (Levaquin 750 Mg Ivpremix(*)) 750 mg in 150 mls @ 100 mls /hr IVPB Q24H [facility] Mirtazapine (Remeron Tab*) 15 mg PO BEDTIME [facility] Last Admin: 03/06/17 20:51 Dose: 15 mg Mometasone Furoate/Formoterol Fumar (Dulera 200/5 Mdi*) 2 puff INH BID [facility] Last Admin: 03/07/17 11:56 Dose: 2 puff Omeprazole (Prilosec Cap*) 20 mg PO DAILY@0600 [facility] Last Admin: 03/07/17 06:42 Dose: 20 mg Prednisone (Deltasone Tab*) 60 mg PO DAILY [facility] Last Admin: 03/07/17 08:24 Dose: 60 mg Zolpidem Tartrate (Ambien Tab*) 5 mg PO BEDTIME PRN PRN Reason: SLEEP Last Admin: 03/06/17 20:51 Dose: 5 mg Vital Signs 03/07/17 03/07/17 03/07/17 08:00 11:02 12:32 Temperature 98.0 F Pulse Rate 96 90 Respiratory 17 17 16 Rate Blood Pressure 123/57 (mmHg) O2 Sat by Pulse 93 93 94 Oximetry Oxygen Devices in Use Now: None Appearance: Pleasant elderly lady sitting up in bed in NAD, but anxious. Eyes: No Scleral Icterus Ears/Nose/Mouth/Throat: Mucous Membranes Moist Neck: Trachea Midline Respiratory: Symmetrical Chest Expansion and Respiratory Effort, - - BS+ bilaterally with scattered wheezes Cardiovascular: RRR - Normal S1 and S2 Abdominal: NL Sounds; No Tenderness; No Distention Extremities: No Edema Neurological: Alert and Oriented x 3, NL Muscle Strength and Tone Lines/Tubes/Other Access: Clean, Dry and Intact Peripheral IV Nutrition: Taking PO's Result Diagrams: 03/07/17 06:17 03/07/17 06:17 Assess/Plan/Problems-Billing Assessment: Mrs. Beckford is an 86yo F with PMH of tobacco abuse, COPD, recent admission for pneumonia who presented to ED with c/o dyspnea and cough, found to have bronchopneumonia. - Patient Problems (1) COPD exacerbation Comment: - Secondary to pneumonia. - Continue bronchodilators and steroids. (2) Bronchopneumonia Comment: - CxR shows resolution of RLL infiltrate present on prior admission in January, but shows new RUL and left mid lung infiltrates compatible with bronchopneumonia. - Continue Levofloxacin #2. (3) Tobacco abuse counseling Comment: - Patient advised about importance of quitting. She understand if she continues to smoke she's at risk for worsening lung disease, heart disease, cancer, and . She verbalizes understanding, but states she's not interested now. "I lived to be 86, I'm not stopping now". - Declines nicotine supplementation. (4) Anxiety Comment: - Exacerbating all her symptoms. - Patient doesn't see an end to her family conflicts any time soon. Advised to pursue counseling as outpatient - will consider. (5) DVT prophylaxis Comment: - SQ heparin. (6) Full code status Status and Disposition: Inpatient for management of COPD exacerbation and bronchopneumonia requiring > 48h for stabilization.
[2017-03-07] MEDS ORDERED: Levofloxacin 750 MG IVPREMIX(* 750 MG/150 ML BAG IVPB SCH (16:00)
[2017-03-07] MEDS: Mirtazapine TAB* 15 MG PO SCH (22:00)
[2017-03-08] MEDS: Albuterol/Ipratropium NEB.SOL* Albuterol 2.5 MG/Ipratropium 0.5 MG 3 ML INH SCH ×2 (00:56→09:21)
[2017-03-08] MEDS: Heparin VIAL(*) 5000 UNITS/ML VIAL (FIVE THOUSAND) SUBCUT SCH (06:14)
[2017-03-08] MEDS: Omeprazole CAP* 20 MG PO SCH (06:15)
[2017-03-08 07:50] VITALS: BP 134/70
[2017-03-08] MEDS: Mometasone/Formoter 200/5 MDI INH SCH (08:14)
[2017-03-08] MEDS: predniSONE TAB* 20 MG PO SCH (08:15)
[2017-03-08] MEDS ORDERED: Spiriva Inhaler DEVICE* 1 EACH DEVICE SCH (10:00)
[2017-03-08] MEDS ORDERED: Spiriva Inhaler DEVICE* 1 EACH DEVICE INH SCH (10:00)
[2017-03-09] MEDS ORDERED: Tiotropium CAP.INH* CAP.INH/18 MCG (USE ORDER SET !) INH SCH (09:00)
--- NOTE | 2017-03-09 20:31 | DS ---
CC: Dr. Zavala; Dr. James DISCHARGE SUMMARY: DATE OF ADMISSION: 03/06/17 DATE OF DISCHARGE: 03/08/17 PRIMARY CARE PROVIDER: Dr. Zavala. READING ASSISTANT: Dr. James. DISCHARGE DIAGNOSES: 1. Acute chronic obstructive pulmonary disease exacerbation. 2. Bronchial pneumonia. 3. Anxiety. SECONDARY DIAGNOSES: 1. Recent admission for pneumonia in January. 2. Chronic obstructive pulmonary disease. 3. Tobacco abuse. 4. Macular degeneration. MEDICATION LIST: 1. DuoNeb one neb inhaled q.4 hours p.r.n. shortness of breath. 2. Symbicort 160/4.5 two puffs inhaled b.i.d. 3. Ambien 5 mg p.o. at bedtime as needed for insomnia. 4. Mirtazapine 15 mg p.o. at bedtime. 5. Spiriva one capsule inhaled daily. 6. Omeprazole 20 mg p.o. daily at 6 a.m. 7. Albuterol HFA two puffs inhaled q.4 hours p.r.n. shortness of breath. 8. Prednisone taper as follows; 40 mg p.o. daily for 3 days; then 30 mg for 3 days; 20 mg 3 days; 1 0 mg 3 days; 5 mg 3 days and stop. 9. Levofloxacin 750 mg p.o. daily for 5 more days. HOSPITAL COURSE: Ms. Fuchs is an 86-year-old lady with a past medical history stated above that p resented to the emergency room with complaints of cough, shortness of breath, and chills. Of note i s the fact that the patient was admitted to [facility] from 03/03/17 to 03/05/17, with right lower lobe pne umonia. At that time, she completed 7 days of levofloxacin. She returned to [facility] on 03/08/17 with c omplaints of chest pain that was diagnosed as musculoskeletal. Her stress test was negative. The patient is under a great amount of stress and anxiety due to financial issues involving her gran ddauter and granddaughter's fiance. She continues to smoke and has no plan of cutting it down. At this time, she was found to have resolution of her right lower lobe infiltrate, but she was found to have new airspace consolidation involving the anterior segment of right upper lobe and alveolar consolidation in the periphery of the left midlung zone suggestive of bronchial pneumonia with new a reas of consolidation compared with her prior x-ray from 01/31/17. The patient was started on bronchodilators, steroids, antibiotics, and she had improvement of her sy mptoms. She says that her dyspnea is back at baseline and she feels well enough to go home. I believe her major issue at this point is the anxiety related to her family situation. I believe t hat the patient would benefit of therapy and counseling as outpatient. She is open to the idea. 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 Once again, she was advised about the importance of quitting tobacco. She is aware that if she cont inues to smoke, she is at risk for cancer, stroke, heart attack, vascular disease, worsening lung di sease and . She states that she has smoked to age 86 and she is not planning to stop now, even though she acknowledges all the risks aforementioned. She is medically stable for discharge at this time. PHYSICAL EXAMINATION: Vital Signs: Temperature 97.3, heart rate is 80, respiratory rate is 18, oxy gen saturation 95% on room air, blood pressure 134/70. General: The patient is a pleasant elderly l terry, sitting up in bed in no acute distress. CVS: Normal S1, S2. Regular rate and rhythm. Chest: Breath sounds present bilaterally, decreased with no added sounds. Abdomen: Soft, nontender and nondistended. Bowel sounds are present. Extremities: No edema. Neurologic: She is alert and della ented x3. She is able to move all 4 extremities. DIET: Regular diet. ACTIVITY: As tolerated. DISPOSITION: To home. STATUS WHILE IN THE HOSPITAL: Inpatient. Please keep in mind this is a summarized version of this patient's hospital stay. If you need more i nformation, please feel free to call me at [phone] or please obtain the full medical records. TIME SPENT: Approximately 45 minutes were spent to complete this discharge. [id number]/[facility] #: [id number]
== END 2017-03-08 11:20 | disposition home or self-care (01) | DRG 190 ==
LOC: ED 14:57 → MED 18:05
PROVIDERS: ADMIT Internal Medicine; ATTEND Internal Medicine
DX: J44.1 Chronic obstructive pulmonary disease with (acute) exacerbation (principal); J18.8 Other pneumonia, unspecified organism; F17.210 Nicotine dependence, cigarettes, uncomplicated; F41.9 Anxiety disorder, unspecified; H35.30 Unspecified macular degeneration; Z79.899 Other long term (current) drug therapy; Z88.0 Allergy status to penicillin; Z81.1 Family history of alcohol abuse and dependence; Z84.89 Family history of other specified conditions; R00.0 Tachycardia, unspecified
CPT/HCPCS: 36415; 71010; 80048; 80053; 81003; 83605; 84484; 85025; 85610; 86140; 87040; 87502; 87899; 93005; 94640; 94760; A9270-GY; J1644; J7512

== ENCOUNTER 2018-08-10 08:41 | Emergency (ER) | payer MEDICARE, BC ==
[2018-08-10] MEDS ORDERED: NS 0.9% 1000 ML** 1,000 ML IV ONE (09:19)
[2018-08-10] MEDS ORDERED: Levofloxacin 500 MG IVPREMIX(* 500 MG/100 ML BAG IVPB ONE (09:19)
--- NOTE | 2018-08-10 09:45 | ED ---
Respiratory - HPI Summary HPI Summary: Patient is a 89-year-old female smoker with a history of COPD and pneumonia presenting to the ED with concern for pneumonia. She states for the past 3 days , she has been coughing with productive sputum. She denies any fevers or sweats , however is endorsing chills. She states this is similar to her other PNA episodes. She continues to smoke. She denies any weakness. Denies any urinary symptoms, abdominal pain. She denies any shortness of breath and does not use oxygen at home. She does have Spiriva at home which she takes intermittently. She does not use nebulized treatments at home. She states she has been admitted for PNA several times in the past. - History of Current Complaint Chief Complaint: ThosarwatBert Stated Complaint: I THINK I HAVE PNEUMONIA PER PT Time Seen by Provider: 08/10/18 08:58 Hx Obtained From: Patient Onset/Duration: Gradual Onset Timing: Constant Initial Severity: Moderate Current Severity: Moderate Pain Intensity: 0 Character: Cough (Productive) Sputum Amount: Moderate Sputum Color: Yellow, Green Aggravating Factor(s): URI, Passive Smoke Exposure, Other - smoking hx Alleviating Factor(s): Nothing - Risk Factors Status Asthmaticus Risk Factors: Smoking Pulmonary Embolism Risk Factors: Smoking Cardiac Risk Factors: Smoking Pseudomonas Risk Factors: Repeated Antibiotics Past 3 Months Tuberculosis Risk Factors: Chronic Respiratory Failure, Smoking - Allergy/Home Medications Allergies/Adverse Reactions: Allergies Allergy/AdvReac Type Severity Reaction Status Date / Time Penicillins Allergy Shortness Verified 08/10/18 08:55 of Breath PMH/Surg Hx/FS Hx/Imm Hx Previously Healthy: Yes Endocrine/Hematology History: Denies: Hx Diabetes Cardiovascular History: Reports: Hx Angina Denies: Hx Congestive Heart Failure, Hx Coronary Artery Disease, Hx Hypercholesterolemia, Hx Hypertension, Hx Myocardial Infarction Respiratory History: Reports: Hx Chronic Obstructive Pulmonary Disease (COPD), Hx Pneumonia, Other Respiratory Problems/Disorders - current SOB with exertion History: Denies: Hx Renal Disease Sensory History: Reports: Hx Cataracts - cataract removal, Hx Contacts or Glasses, Hx Macular Degeneration, Hx Hearing Problem Denies: Hx Hearing Aid Opthamlomology History: Reports: Hx Cataracts - cataract removal, Hx Contacts or Glasses, Hx Macular Degeneration Neurological History: Reports: Other Neuro Impairments/Disorders - familial tremors Psychiatric History: Reports: Hx Depression - Surgical History Surgery Procedure, Year, and Place: gallbladder removal, appy, hysterectomy - Immunization History Date of Tetanus Vaccine: Unknown Hx Pertussis Vaccination: No Immunizations Up to Date: Yes Infectious Disease History: No Infectious Disease History: Denies: Traveled Outside the [place] in Last 30 Days - Family History Known Family History: Positive: Other - POS: DM, [place] Negative: Hypertension, Diabetes - Social History Occupation: Unemployed Lives: With Family Alcohol Use: Rare Hx Substance Use: No Substance Use Type: Reports: None Hx Tobacco Use: Yes Smoking Status (MU): Heavy Every Day Tobacco Smoker Type: Cigarettes Amount Used/How Often: half pack a day (last smoked on 02/04) Have You Smoked in the Last Year: Yes Review of Systems Constitutional: Negative Negative: Fever, Chills, Fatigue, Skin Diaphoresis Negative: Palpitations, Chest Pain Positive: Cough - with production. Negative: Shortness Of Breath Genitourinary: Negative Positive: no symptoms reported, see HPI Negative: Arthralgia, Myalgia Skin: Negative Neurological: Negative All Other Systems Reviewed And Are Negative: Yes Physical Exam Triage Information Reviewed: Yes Vital Signs On Initial Exam: Initial Vitals Temp Pulse Resp BP Pulse Ox 99.8 F 117 25 127/69 95 08/10/18 08:46 08/10/18 08:46 08/10/18 08:46 08/10/18 08:46 08/10/18 08:46 Vital Signs Reviewed: Yes Appearance: Positive: Well-Appearing, Well-Nourished Skin: Positive: Warm, Skin Color Reflects Adequate Perfusion Head/Face: Positive: Normal Head/Face Inspection Eyes: Positive: EOMI, CORAL, Conjunctiva Clear Neck: Positive: Supple, No Lymphadenopathy Respiratory/Lung Sounds: Positive: Rhonchi - throughout Cardiovascular: Positive: Pulses are Symmetrical in both Upper and Lower Extremities, Tachycardia. Negative: Leg Edema Left, Leg Edema Right Musculoskeletal: Positive: Normal, Strength/ROM Intact Neurological: Positive: Speech Normal Psychiatric: Positive: Normal, Affect/Mood Appropriate Diagnostics - Vital Signs Vital Signs Temp Pulse Resp BP Pulse Ox 08/10/18 08:46 99.8 F 117 25 127/69 95 - Laboratory Result Diagrams: 08/10/18 09:40 08/10/18 09:40 Lab Statement: Any lab studies that have been ordered have been reviewed, and results considered in the medical decision making process. Disposition - Course Course Of Treatment: During this course treatment, the patient is evaluated for PNA. She is afebrile. Denies any sweats or chills, moment. States she has a productive cough 3 days and feels like her past episodes of PNA. She denies any SOB. VS 99.8, 117, 25, 95%. Septic workup started with fluids, levaquin and labs. Labs show an increased white count of 17,000 and an elevated CRP. Chest x-ray shows no acute cardiopulmonary disease. Patient is given a DuoNeb with good effect. She continues to sign any shortness of breath. She continues to deny any abdominal pain or CP. Influenza negative. Sodium of 132. CRP 69.55. Discussed these findings with the patient. Patient states she would like to be discharged home. She is given Levaquin as she continues to smoke and has COPD. This is protective and prophylactic treatment due to her recent increase of coughing. She states she has sprained home, however I have prescribed her an albuterol inhaler. She states she will return if she has any worsening or changing symptoms. Vital signs prior to discharge 99.6, 86 , respirations 16, 92% on room air, 101/54. Patient able to ambulate and continues to maintain a saturation of 92%. - Differential Dx - Cardiopulmonary Differential Diagnoses - Cardiopulmonary: Other - Viral syndrome, shortness of breath, COPD exacerbation, bronchitis - Diagnoses Provider Diagnoses: Bronchitis, COPD exacerbation - Critical Care Time Critical Care Time: 30-74 min Discharge - Sign-Out/Discharge Documenting (check all that apply): Patient Departure Patient Received Moderate/Deep Sedation with Procedure: No - Discharge Plan Condition: Stable Disposition: HOME Prescriptions: Albuterol HFA INHALER* [Ventolin HFA Inhaler*] 1 puff INH Q4H PRN #1 mdi PRN Reason: Shortness Of Breath Levofloxacin TAB* [Levaquin TAB*] 500 mg PO DAILY #5 tab Patient Education Materials: Acute Bronchitis (ED) Referrals: Coreen Zavala MD [Primary Care Provider] - Additional Instructions: Levaquin once daily 5 days, start this tomorrow Albuterol inhaler as needed for any shortness of breath Drink plenty of fluids - Billing Disposition and Condition Condition: STABLE Disposition: Home
[2018-08-10 09:49] LABS: ABS Basophils 0 10^3/ul (0-0.2); ABS Eosinophils 0 10^3/ul (0-0.6); ABS Lymphocytes 1.2 10^3/ul (1.0-4.8); ABS Monocytes 1.1 10^3/ul (0-0.8); ABS Neutrophils 14.8 10^3/ul (1.5-7.7); ABS Nucleated RBC 0 10^3/ul; Eosinophil % 0.2 %; Hematocrit 41 % (33-41); Hemoglobin 13.2 g/dL (12.0-16.0); Lymphocyte % 6.9 %; Mean Corpuscular HGB Conc 33 g/dL (31-36); Mean Corpuscular Hemoglobin 28 pg (27-31); Mean Corpuscular Volume 87 fL (80-97); Mean Platelet Volume 8.1 fL (7.4-10.4); Nucleated Red Blood Cells % 0; Platelet Count 204 10^3/uL (150-450); Red Blood Count 4.67 10^6 /uL (3.70-4.87); Red Cell Distribution Width 14 % (10.5-15); White Blood Count 17.2 10^3/uL (3.5-10.8)
[2018-08-10 09:57] LABS: Influenza A Molecular NEGATIVE (Negative); Influenza B Molecular NEGATIVE (Negative)
[2018-08-10 10:07] LABS: Albumin 3.9 g/dL (3.2-5.2); Albumin/Globulin Ratio 1.3 (1-3); BUN/Creatinine Ratio 25.3 (8-20); C Reactive Protein 69.55 mg/L (<8.01); Calcium 9.3 mg/dL (8.6-10.3); EGFR African American 83.5 (>60); Globulin 3.1 g/dL (2-4); Potassium 4.1 mmol/L (3.5-5.0); Total Bilirubin 0.8 mg/dL (0.2-1.0)
[2018-08-10 11:36] VITALS: BP 101/54
== END 2018-08-10 12:04 | disposition home or self-care (01) ==
LOC: ED 08:41
DX: J44.1 Chronic obstructive pulmonary disease with (acute) exacerbation (principal); Z88.0 Allergy status to penicillin; F17.210 Nicotine dependence, cigarettes, uncomplicated
CPT/HCPCS: 36415; 71046; 80053; 83605; 84484; 85025; 86140; 87040; 96361; 96365; 99283; J1956

== ENCOUNTER → 2018-11-14 15:05 | Emergency (ER) | payer MEDICARE, BC ==
[2018-11-14 18:30] LABS: ABS Basophils 0.1 10^3/ul (0-0.2); ABS Eosinophils 0.2 10^3/ul (0-0.6); ABS Lymphocytes 1.9 10^3/ul (1.0-4.8); ABS Monocytes 0.9 10^3/ul (0-0.8); ABS Neutrophils 10.2 10^3/ul (1.5-7.7); Eosinophil % 1.6 %; Hematocrit 40 % (35-47); Hemoglobin 12.7 g/dL (12.0-16.0); Lymphocyte % 14.3 %; Mean Corpuscular HGB Conc 32 g/dL (31-36); Mean Corpuscular Hemoglobin 27 pg (27-31); Mean Corpuscular Volume 84 fL (80-97); Mean Platelet Volume 7.8 fL (7.4-10.4); Nucleated Red Blood Cells % 0.1; Platelet Count 322 10^3/uL (150-450); Red Blood Count 4.77 10^6 /uL (3.70-4.87); Red Cell Distribution Width 13 % (10-15); White Blood Count 13.3 10^3/uL (3.5-10.8)
[2018-11-14 18:39] LABS: Activated Partial Thrombo Time 42.6 seconds (26.0-38.0); INR 1.13 (0.82-1.09)
[2018-11-14 18:49] LABS: Albumin 3.8 g/dL (3.2-5.2); Albumin/Globulin Ratio 0.9 (1-3); BUN/Creatinine Ratio 25.9 (8-20); C Reactive Protein 105.53 mg/L (<8.01); Calcium 9.6 mg/dL (8.6-10.3); EGFR Non-African American 98.3 (>60); Globulin 4.1 g/dL (2-4); Potassium 3.9 mmol/L (3.5-5.0); Total Bilirubin 0.6 mg/dL (0.2-1.0); Total Protein 7.9 g/dL (6.4-8.9)
[2018-11-14 19:51] VITALS: BP 104/56
--- NOTE | 2018-11-14 20:10 | PN ---
Progress Note - Progress Note Date of Service: 11/14/18 - 19:59 Note: Went to ED waiting area to evaluate pt and pt and daughter left without being seen by physician. Triage nurse had describe patient's symptoms, and orders were placed based on the triage evaluation, however pt was not seen by the physician. Per the nurse's note, pt left with daughter, ambulatory and in no acute distress. Pt's wbc count was 13.3, her CRP was elevated at 105.53, Her INR was 1.13 and her BNP was 31 . Her CXR showed hyperinflation c/w COPD and no active cardiopulmonary disease. I will call pt and her daughter to discuss these results. 2100: Called pt and she answered, but I had to end the call abruptly to talk with trauma surgeon for another patient. 0: I called pt again. Son answered the phone. Pt came to the phone and I spoke with her. She stated she felt fine. I advised her no sign of pneumonia based on the tests we did. Pt was reassured. Pt stated she was ready to go to sleep. She spoke in full sentences, did not sound short of breath. She stated she had her inhalers, and I advised her to continue those. Pt states she has Dr. Zavala, and I advised her to tell Dr. Zavala that she had these studies done , and to call Dr. Zavala, or return to the ER, if she has any new or worsening symptoms. Primitivo CAREY, 11/15/18 0003.
== END | disposition left against medical advice (07) ==
LOC: ED 15:05
DX: Z53.21 Procedure and treatment not carried out due to patient leaving prior to being seen by health care provider (principal)
CPT/HCPCS: 36415; 71046; 80053; 82550; 82553; 83605; 83880; 84484; 85025; 85610; 85730; 86140; 87040; 99281

== ENCOUNTER 2019-02-03 22:53 | Emergency (ER) | payer MEDICARE, BC ==
--- NOTE | 2019-02-04 00:05 | ED ---
Shortness of Breath - HPI Summary HPI Summary: Complains of shortness of breath starting this afternoon. Patient was given nebulizer treatment by son prior to arrival of EMS. Patient O2 sats 95% upon arrival of EMS. Patient brought to the ED for further evaluation. Patient denies active SOB, CP at this time. Also denies fever, cough, sore throat, CP, SOB, N/V/V Rider pain, change in urine, change in BM. Patient also complains of multiple areas of erythema on her feet, left hip and left side face which has been diagnosed by urgent care as cellulitis. Currently taking second round of antibiotics without improvement in symptoms. Medical history is anxiety. - History of Current Complaint Chief Complaint: EDRespiratoryDistress Hx Obtained From: Patient Onset/Duration: Sudden Onset, Lasting Minutes Current Severity: None Dyspnea At: Rest Aggravating Factors: Nothing Alleviating Factors: Bronchodilators Associated Signs & Symptoms: Negative - Allergy/Home Medications Allergies/Adverse Reactions: Allergies Allergy/AdvReac Type Severity Reaction Status Date / Time Penicillins Allergy Shortness Verified 11/14/18 15:14 of Breath PMH/Surg Hx/FS Hx/Imm Hx Endocrine/Hematology History: Denies: Hx Diabetes Cardiovascular History: Reports: Hx Angina Denies: Hx Congestive Heart Failure, Hx Coronary Artery Disease, Hx Hypercholesterolemia, Hx Hypertension, Hx Myocardial Infarction Respiratory History: Reports: Hx Chronic Obstructive Pulmonary Disease (COPD), Hx Pneumonia, Other Respiratory Problems/Disorders - current SOB with exertion History: Denies: Hx Renal Disease Sensory History: Reports: Hx Cataracts - cataract removal, Hx Contacts or Glasses, Hx Macular Degeneration, Hx Hearing Problem Denies: Hx Hearing Aid Opthamlomology History: Reports: Hx Cataracts - cataract removal, Hx Contacts or Glasses, Hx Macular Degeneration EENT History: Denies: Hx Deafness Neurological History: Reports: Other Neuro Impairments/Disorders - familial tremors Denies: Hx Dementia Psychiatric History: Reports: Hx Depression - Surgical History Surgery Procedure, Year, and Place: gallbladder removal, appy, hysterectomy - Immunization History Date of Tetanus Vaccine: Unknown Infectious Disease History: No Infectious Disease History: Denies: Traveled Outside the [place] in Last 30 Days - Family History Known Family History: Positive: Other - POS: DM, [place] Negative: Hypertension, Diabetes - Social History Alcohol Use: Rare Hx Substance Use: No Substance Use Type: Reports: None Hx Tobacco Use: Yes Smoking Status (MU): Heavy Every Day Tobacco Smoker Type: Cigarettes Amount Used/How Often: half pack a day (last smoked on 02/04) Have You Smoked in the Last Year: Yes Review of Systems Constitutional: Negative Eyes: Negative ENT: Negative Cardiovascular: Negative Positive: Shortness Of Breath Gastrointestinal: Negative Genitourinary: Negative Musculoskeletal: Negative Skin: Other Neurological: Negative Psychological: Normal All Other Systems Reviewed And Are Negative: Yes Physical Exam - Summary Physical Exam Summary: 2 or 3 independent lesions of erythema on bilateral ankles. Tender to palpation. No extra warmth, ecchymosis, swelling or deformity noted to ankles or feet. Calves soft nontender bilaterally. Patient has one area of raised erythema on left hip which appears to be an insect bite. Patient also complains of redness and swelling to left side face which is not visible to this provider. ENT exam was unremarkable. Vital Signs On Initial Exam: Initial Vitals Temp Pulse Resp BP Pulse Ox 97.7 F 98 22 120/72 94 02/03/19 22:56 02/03/19 22:56 02/03/19 22:56 02/03/19 22:56 02/03/19 22:56 Procedures - Sedation Patient Received Moderate/Deep Sedation with Procedure: No Diagnostics - Vital Signs Vital Signs Temp Pulse Resp BP Pulse Ox 02/03/19 23:00 93 94 02/03/19 22:58 95 120/72 94 02/03/19 22:56 97.7 F 98 22 120/72 94 - Laboratory Result Diagrams: 02/04/19 00:29 02/04/19 00:29 Lab Statement: Any lab studies that have been ordered have been reviewed, and results considered in the medical decision making process. Course/Dx - Course Course Of Treatment: Complains of shortness of breath starting this afternoon. Patient was given nebulizer treatment by son prior to arrival of EMS. Patient O2 sats 95% upon arrival of EMS. Patient brought to the ED for further evaluation. Patient denies active SOB, CP at this time. Also denies fever, cough, sore throat, CP, SOB, N/V/V Rider pain, change in urine, change in BM. Patient also complains of multiple areas of erythema on her feet, left hip and left side face which has been diagnosed by urgent care as cellulitis. Currently taking second round of antibiotics without improvement in symptoms. Medical history is anxiety. Patient intermittently mildly tachycardic, mildly tachypnea. In no apparent respiratory distress. Denies active symptoms. Vital signs otherwise within normal limits. Serial troponins negative. WBC 13.1. Labs otherwise unremarkable. EKG sinus rhythm, same as prior. Chest x- ray unremarkable. Rash appears inconsistent with cellulitis. Patient advised to follow-up with primary care and dermatology. - Diagnoses Provider Diagnoses: COPD exacerbation, Rash Discharge ED - Sign-Out/Discharge Documenting (check all that apply): Patient Departure Patient Received Moderate/Deep Sedation with Procedure: No - Discharge Plan Condition: Stable Disposition: HOME Patient Education Materials: COPD (Chronic Obstructive Pulmonary Disease) (ED) , Acute Rash (ED) Referrals: Coreen Zavala MD [Primary Care Provider] - Additional Instructions: Follow-up at your primary care appointment tomorrow for further management of rash and potential dermatology evaluation. Return to the ED for any new or worsening symptoms. - Billing Disposition and Condition Condition: STABLE Disposition: Home - Attestation Statements Provider Attestation: pt seen by midlevel provider independently, based on their assessment, it was not necessary to present the case to me but I was available for consultation. I did not form a physician-patient relationship with the patient. The chart however, has been reviewed. am signing this note strictly in an administrative capacity.
[2019-02-04 00:38] LABS: Urine Appearance Clear; Urine Bacteria 1+ (Absent); Urine Bilirubin Negative (Negative); Urine Blood 1+ (Negative); Urine Color Yellow; Urine Glucose Negative (Negative); Urine Ketones Negative (Negative); Urine Nitrite Negative (Negative); Urine Protein Negative (Negative); Urine Red Blood Cell Trace(0-2/hpf) (Absent); Urine Specific Gravity 1.008 (1.010-1.030); Urine Squamous Epithelial Cell Present (Absent); Urine Urobilinogen Negative (Negative); Urine White Blood Cell Trace(0-5/hpf) (Absent)
[2019-02-04 00:49] LABS: ABS Basophils 0.1 10^3/ul (0-0.2); ABS Eosinophils 0.3 10^3/ul (0-0.6); ABS Lymphocytes 2.5 10^3/ul (1.0-4.8); ABS Neutrophils 9.1 10^3/ul (1.5-7.7); Eosinophil % 2.4 %; Hematocrit 45 % (35-47); Hemoglobin 14.3 g/dL (12.0-16.0); Lymphocyte % 19.5 %; Mean Corpuscular HGB Conc 32 g/dL (31-36); Mean Corpuscular Hemoglobin 27 pg (27-31); Mean Corpuscular Volume 84 fL (80-97); Mean Platelet Volume 8.4 fL (7.4-10.4); Nucleated Red Blood Cells % 0.1; Platelet Count 270 10^3/uL (150-450); Red Blood Count 5.31 10^6 /uL (3.70-4.87); Red Cell Distribution Width 16 % (10-15); White Blood Count 13.1 10^3/uL (3.5-10.8)
[2019-02-04 00:54] LABS: Albumin 4.4 g/dL (3.2-5.2); Albumin/Globulin Ratio 1.3 (1-3); BUN/Creatinine Ratio 23.7 (8-20); C Reactive Protein 5.3 mg/L (<8.01); Calcium 10.1 mg/dL (8.6-10.3); EGFR African American 65.7 (>60); EGFR Non-African American 54.3 (>60); Globulin 3.3 g/dL (2-4); Magnesium 1.9 mg/dL (1.9-2.7); Potassium 4.7 mmol/L (3.5-5.0); Total Bilirubin 0.3 mg/dL (0.2-1.0); Total Protein 7.7 g/dL (6.4-8.9)
[2019-02-04] MEDS ORDERED: Ibuprofen TAB* 400 MG PO ONE (02:00)
[2019-02-04] MEDS ORDERED: Acetaminophen TAB* 325 MG PO ONE (02:00)
[2019-02-04] MEDS ORDERED: Lidocaine/Epineph/Tetraca GEL* 3 ML GEL IN SYR TOPICAL ONE (02:01)
[2019-02-04 02:29] VITALS: BP 126/61
== END 2019-02-04 02:27 | disposition home or self-care (01) ==
LOC: ED 22:53
DX: J44.9 Chronic obstructive pulmonary disease, unspecified (principal); R21 Rash and other nonspecific skin eruption; F17.210 Nicotine dependence, cigarettes, uncomplicated; Z88.0 Allergy status to penicillin; R94.31 Abnormal electrocardiogram [ECG] [EKG]; Z79.899 Other long term (current) drug therapy
CPT/HCPCS: 36415; 71046; 80053; 81003; 81015; 83735; 84484; 85025; 86140; 87086; 93005; 99283; A9270-GY

== ENCOUNTER 2019-08-19 10:08 | Emergency (ER) | payer MEDICARE, BC, OTHER ==
--- NOTE | 2019-08-19 10:22 | ED ---
Shortness of Breath - HPI Summary HPI Summary: Pt. is an 88 y.o female who presents to ER for SOB and cough x several days. Past hx of COPD. Pt. denies chest pain. Pt. denies fever or sick contacts. Pt. denies fever, chills, N.V, abd. pain. Sxs are moderate in severity. No current modifying factors. - History of Current Complaint Time Seen by Provider: 08/19/19 10:21 Hx Obtained From: Patient - Allergy/Home Medications Allergies/Adverse Reactions: Allergies Allergy/AdvReac Type Severity Reaction Status Date / Time Penicillins Allergy Shortness Verified 08/19/19 11:34 of Breath Home Medications: Home Medications Albuterol/Ipratropium NEB.ROSEMARY* [Duoneb (Albuterol 2.5 MG/Ipratropium 0.5 MG)] 1 neb INH .2-3X/DAY PRN 03/06/17 [History Confirmed 08/19/19] Budesonide/Formote 160/4.5(NF) [Symbicort 160/4.5 (NF)] 2 puff INH BID PRN 03/06 [History Confirmed 08/19/19] Zolpidem TAB* [Ambien*] 5 mg PO BEDTIME PRN 03/06/17 [History Confirmed 08/19/19 ] Fluconazole 150 MG TAB* [Diflucan 150 MG TAB*] 150 mg PO ONCE 08/19/19 [History Confirmed 08/19/19] Nicotine Lozenge* (NF) [Nicotine Lozenge*] 2 mg PO Q2H PRN 08/19/19 [History Confirmed 08/19/19] PMH/Surg Hx/FS Hx/Imm Hx Previously Healthy: Yes Endocrine/Hematology History: Denies: Hx Diabetes Cardiovascular History: Reports: Hx Angina Denies: Hx Congestive Heart Failure, Hx Coronary Artery Disease, Hx Hypercholesterolemia, Hx Hypertension, Hx Myocardial Infarction Respiratory History: Reports: Hx Chronic Obstructive Pulmonary Disease (COPD), Hx Pneumonia, Other Respiratory Problems/Disorders - current SOB with exertion History: Denies: Hx Renal Disease Sensory History: Reports: Hx Cataracts - cataract removal, Hx Contacts or Glasses, Hx Macular Degeneration, Hx Hearing Problem Denies: Hx Deafness, Hx Hearing Aid Opthamlomology History: Reports: Hx Cataracts - cataract removal, Hx Contacts or Glasses, Hx Macular Degeneration Neurological History: Reports: Other Neuro Impairments/Disorders - familial tremors Denies: Hx Dementia Psychiatric History: Reports: Hx Depression - Surgical History Surgery Procedure, Year, and Place: gallbladder removal, appy, hysterectomy - Immunization History Date of Tetanus Vaccine: Unknown - Family History Known Family History: Positive: Other - POS: DM, [place] Negative: Hypertension, Diabetes - Social History Occupation: Retired Lives: With Family Alcohol Use: Rare Hx Substance Use: No Substance Use Type: Reports: None Hx Tobacco Use: Yes Smoking Status (MU): Heavy Every Day Tobacco Smoker Type: Cigarettes Amount Used/How Often: half pack a day (last smoked on 02/04) Have You Smoked in the Last Year: Yes Review of Systems Constitutional: Negative Negative: Fever Cardiovascular: Negative Negative: Chest Pain Positive: Shortness Of Breath, Cough Gastrointestinal: Negative Negative: Abdominal Pain, Vomiting, Diarrhea Musculoskeletal: Negative Skin: Negative Neurological/Mental Status: Negative All Other Systems Reviewed And Are Negative: Yes Physical Exam Triage Information Reviewed: Yes Vital Signs Reviewed: Yes Appearance: Positive: Well-Appearing - Pt. sitting up in bed in NAD. Wearing mask. Answers questions appropriately. Anxious. Skin: Positive: Warm, Dry Head/Face: Positive: Normal Head/Face Inspection Eyes: Positive: Normal, EOMI Neck: Positive: Supple Respiratory/Lung Sounds: Positive: Other - Mild rhonchi on right. Cardiovascular: Positive: Normal, RRR Abdomen Description: Positive: Nontender, Soft Musculoskeletal: Negative: Edema Left, Edema Right Neurological: Positive: Normal, CN Intact II-III Psychiatric: Positive: Affect/Mood Appropriate Procedures - Sedation Patient Received Moderate/Deep Sedation with Procedure: No Diagnostics - Laboratory Result Diagrams: 08/19/19 11:15 08/19/19 11:15 Lab Statement: Any lab studies that have been ordered have been reviewed, and results considered in the medical decision making process. Course/Dx - Course Course Of Treatment: Pt. with c/o cough and sob. Afebrile. O2 saturation 95% on RA. VS stable. Pt. is very anxious. Given cough and SOB. COVID ordered and PPE inuse. Labs are unremarkable. ECG done at 1120 shows a sinus rhythm of 82bpm, normal axis, no STEMI. CXR negative for acute findings per radiology. Pt. ambulated in room and O2 stayed 95%. Will dc pt. home to [facility] with PCP. To continue home meds. To return to er if sxs change or worsen. Pending covid. To f.u isoloation protocols. - Diagnoses Differential Diagnosis/HQI/PQRI: Positive: CHF, COPD Exacerbation, [place], Pneumonia , SARS Provider Diagnoses: Shortness of breath, Cough Discharge ED - Sign-Out/Discharge Documenting (check all that apply): Patient Departure - Discharge Plan Condition: Good Disposition: HOME Patient Education Materials: Dyspnea (ED), Acute Cough (ED) Forms: COVID-19 Tested & Isolation Referrals: Coreen Zavala MD [Medical Doctor] - Additional Instructions: Please see your PCP within 2-3 days for recheck Health department will follow up with you for COVID test results Please follow isolation precautions Continue home medication as directed Return to ER if symptoms change or worsen - Billing Disposition and Condition Condition: GOOD Disposition: Home
[2019-08-19 11:38] LABS: ABS Eosinophils 0.1 10^3/ul (0-0.6); ABS Lymphocytes 1.6 10^3/ul (1.0-4.8); ABS Monocytes 0.6 10^3/ul (0-0.8); ABS Neutrophils 6.6 10^3/ul (1.5-7.7); Eosinophil % 0.9 %; Hematocrit 42 % (35-47); Hemoglobin 13.6 g/dL (12.0-16.0); Lymphocyte % 17.5 %; Mean Corpuscular HGB Conc 33 g/dL (31-36); Mean Corpuscular Hemoglobin 29 pg (27-31); Mean Corpuscular Volume 88 fL (80-97); Mean Platelet Volume 8.5 fL (7.4-10.4); Nucleated Red Blood Cells % 0.1; Platelet Count 223 10^3/uL (150-450); Red Blood Count 4.75 10^6 /uL (3.70-4.87); Red Cell Distribution Width 14 % (10-15); White Blood Count 8.9 10^3/uL (3.5-10.8)
[2019-08-19 11:39] LABS: Activated Partial Thrombo Time 33.1 seconds (26.0-38.0); INR 1.01 (0.82-1.09)
[2019-08-19 11:52] LABS: Albumin 3.9 g/dL (3.2-5.2); Albumin/Globulin Ratio 1.1 (1-3); BUN/Creatinine Ratio 31.7 (8-20); C Reactive Protein 5.51 mg/L (<8.01); Calcium 9.8 mg/dL (8.6-10.3); EGFR African American 114.4 (>60); EGFR Non-African American 94.6 (>60); Globulin 3.5 g/dL (2-4); Potassium 4.3 mmol/L (3.5-5.0); Total Bilirubin 0.5 mg/dL (0.2-1.0); Total Protein 7.4 g/dL (6.4-8.9); Troponin I 0.01 ng/mL (<0.03)
[2019-08-19 11:55] LABS: Influenza A Molecular Negative (Negative); Influenza B Molecular Negative (Negative)
[2019-08-19 14:12] VITALS: BP 145/70
== END 2019-08-19 14:11 | disposition home or self-care (01) ==
LOC: ED 10:08
DX: R06.02 Shortness of breath (principal); R05 Cough; J44.9 Chronic obstructive pulmonary disease, unspecified; Z88.0 Allergy status to penicillin; F17.210 Nicotine dependence, cigarettes, uncomplicated; F41.9 Anxiety disorder, unspecified; Z20.828 Contact with and (suspected) exposure to other viral communicable diseases; Z79.899 Other long term (current) drug therapy
CPT/HCPCS: 36415; 71045; 80053; 83605; 83880; 84484; 85025; 85610; 85730; 86140; 87635; 93005; 99283

== ENCOUNTER 2020-08-21 06:50 | Inpatient (IN) ==
[2020-08-21] MEDS ORDERED: fentaNYL 100 mcg/2 ml 50 MCG/ML VIAL IV SLOW PU ONE (06:57)
[2020-08-21 07:12] LABS: ABS Basophils 0.1 10^3/ul (0-0.2); ABS Eosinophils 0.2 10^3/ul (0-0.6); ABS Lymphocytes 3.3 10^3/ul (1.0-4.8); ABS Monocytes 0.9 10^3/ul (0-0.8); ABS Neutrophils 7.7 10^3/ul (1.5-7.7); Eosinophil % 1.6 %; Hematocrit 40 % (35-47); Hemoglobin 13.2 g/dL (12.0-16.0); Lymphocyte % 27.1 %; Mean Corpuscular HGB Conc 33 g/dL (31-36); Mean Corpuscular Hemoglobin 29 pg (27-31); Mean Corpuscular Volume 90 fL (80-97); Mean Platelet Volume 8.1 fL (7.4-10.4); Platelet Count 279 10^3/uL (150-450); Red Blood Count 4.49 10^6 /uL (3.70-4.87); Red Cell Distribution Width 13 % (10-15); White Blood Count 12.2 10^3/uL (3.5-10.8)
[2020-08-21 07:18] LABS: INR 1.03 (0.82-1.09)
[2020-08-21 07:58] LABS: Albumin/Globulin Ratio 1.3 (1-3); BUN/Creatinine Ratio 37.7 (8-20); Calcium 9.3 mg/dL (8.6-10.3); EGFR Non-African American 92.6 (>60); Globulin 3.2 g/dL (2-4); Potassium 4.1 mmol/L (3.5-5.0); Total Bilirubin 0.6 mg/dL (0.2-1.0); Total Protein 7.2 g/dL (6.4-8.9)
[2020-08-21] MEDS ORDERED: Morphine 4 MG/ML VIAL (1 ml) IV ONE (07:58)
[2020-08-21] MEDS ORDERED: NS 0.9% 1000 ml BAG 1,000 ML IV ONE (08:10)
[2020-08-21] MEDS ORDERED: Albuterol 2.5mg/3 ml (0.083%) NEB.SOLN INH ONE ×3 (08:27→12:53)
[2020-08-21] MEDS ORDERED: Albuterol 2.5mg/3 ml (0.083%) NEB.SOLN INH PRN (08:50)
[2020-08-21] MEDS ORDERED: HYDROmorphone 1 MG/1 ML SYRINGE IV ONE (08:52)
[2020-08-21] MEDS: Albuterol/Ipratropium NEB.SOL (2.5/0.5 MG) 3 ML NEB.SOLN INH SCH ×3 (09:20→20:30)
[2020-08-21] MEDS ORDERED: Midazolam 5 mg/5 ml VIAL 1 mg/ml 5 ml VIAL (5 mg) ONE (09:21)
[2020-08-21] MEDS ORDERED: fentaNYL 100 mcg/2 ml 50 MCG/ML VIAL ONE (09:22)
[2020-08-21] MEDS ORDERED: Sterile Water for Inj 10 ML ONE ×2 (09:22→09:31)
[2020-08-21] MEDS ORDERED: EPHEDrine (Pressors) 50 MG/ML VIAL ONE (09:22)
[2020-08-21] MEDS ORDERED: Propofol 10 MG/ML 20 ML BTL ONE (09:22)
[2020-08-21] MEDS ORDERED: Lidocaine 2% PF 5 ML VIAL ONE (09:22)
[2020-08-21] MEDS ORDERED: Phenylephrine 40 mcg/mL 10mL (400mcg) SYRINGE ONE ×3 (09:24→14:06)
[2020-08-21] MEDS ORDERED: Ketamine HCL 50 mg/ml 10 ml VIAL (500 MG) ONE (09:30)
[2020-08-21] MEDS ORDERED: Bupivacaine 0.5% SDV PF 30ML VIAL ONE (09:30)
[2020-08-21] MEDS ORDERED: Lidocaine 1% w EPI 1:100,000 MDV 20 ML VIAL ONE (10:45)
[2020-08-21] MEDS ORDERED: Bacitracin INJECTION 50,000 UNITS ONE (10:46)
[2020-08-21] MEDS ORDERED: Clindamycin 900 MG/D5W BAG 900 MG/50 ML BAG IVPB ONE (12:26)
[2020-08-21] MEDS ORDERED: Phenylephrine IV 10 MG/ML 1 ml VIAL ONE (14:09)
[2020-08-21] MEDS ORDERED: fentaNYL 100 mcg/2 ml 50 MCG/ML VIAL IV PRN (15:23)
[2020-08-21] MEDS ORDERED: Ondansetron 4 mg VIAL 2 MG/ML 2 ml VIAL IV PRN (15:23)
[2020-08-21] MEDS ORDERED: Acetaminophen IV 1 GM/100ML 1,000 MG/100 ML VIAL IVPB PRN (15:23)
[2020-08-21] MEDS ORDERED: Naloxone 0.4 mg VIAL 0.4 mg/ml 1 ml VIAL IV PRN (15:23)
[2020-08-21] MEDS ORDERED: Acetaminophen IV 1 GM/100ML 100 ML ONE (16:13)
[2020-08-21] MEDS: NS 0.9% 1000 ml BAG 1,000 ML IV SCH (20:00)
[2020-08-21] MEDS ORDERED: diPHENhydraMINE 25 mg TAB PO PRN (20:08)
[2020-08-21] MEDS ORDERED: Ondansetron ODT 4 mg TAB 4 MG TAB SL PRN (20:56)
[2020-08-21] MEDS ORDERED: Senna TAB 8.6 mg TAB PO PRN (20:57)
[2020-08-21] MEDS ORDERED: Polyethylene Glycol 3350 17 GM PACKET PO PRN (20:57)
[2020-08-21] MEDS ORDERED: Heparin 5000 UNITS/ML 1 mL VIAL SUBCUT SCH (22:00)
[2020-08-21] MEDS: Clindamycin 600 MG/D5W BAG IV SCH (22:15)
[2020-08-22] MEDS: Albuterol/Ipratropium NEB.SOL (2.5/0.5 MG) 3 ML NEB.SOLN INH SCH ×4 (03:06→20:47)
[2020-08-22] MEDS: Clindamycin 600 MG/D5W BAG IV SCH ×2 (06:00→15:33)
[2020-08-22] MEDS: Heparin 5000 UNITS/ML 1 mL VIAL SUBCUT SCH ×2 (08:21→15:32)
[2020-08-22 09:05] LABS: ABS Eosinophils 0.1 10^3/ul (0-0.6); ABS Monocytes 0.7 10^3/ul (0-0.8); ABS Neutrophils 5.9 10^3/ul (1.5-7.7); Eosinophil % 0.8 %; Hematocrit 26 % (35-47); Hemoglobin 8.4 g/dL (12.0-16.0); Lymphocyte % 13.4 %; Mean Corpuscular HGB Conc 33 g/dL (31-36); Mean Corpuscular Hemoglobin 30 pg (27-31); Mean Corpuscular Volume 91 fL (80-97); Mean Platelet Volume 8.2 fL (7.4-10.4); Platelet Count 179 10^3/uL (150-450); Red Blood Count 2.83 10^6 /uL (3.70-4.87); Red Cell Distribution Width 13 % (10-15); White Blood Count 7.8 10^3/uL (3.5-10.8)
[2020-08-22 09:10] LABS: Activated Partial Thrombo Time 26.1 seconds (26.0-38.0); INR 1.23 (0.82-1.09)
[2020-08-22 09:21] LABS: Calcium 8.1 mg/dL (8.6-10.3); EGFR African American 88.2 (>60); EGFR Non-African American 72.9 (>60); Potassium 4.5 mmol/L (3.5-5.0)
[2020-08-22] MEDS ORDERED: Lactated Ringers 500 ml BAG 500 ML IV SCH (12:00)
[2020-08-22 12:36] LABS: Hematocrit 27 % (35-47); Hemoglobin 8.8 g/dL (12.0-16.0); Mean Corpuscular HGB Conc 33 g/dL (31-36); Mean Corpuscular Hemoglobin 30 pg (27-31); Mean Corpuscular Volume 91 fL (80-97); Mean Platelet Volume 8.5 fL (7.4-10.4); Platelet Count 197 10^3/uL (150-450); Red Blood Count 2.98 10^6 /uL (3.70-4.87); Red Cell Distribution Width 13 % (10-15); White Blood Count 10.5 10^3/uL (3.5-10.8)
[2020-08-22] MEDS: NS 0.9% 1000 ml BAG 1,000 ML IV SCH (15:33)
[2020-08-22 20:22] LABS: BUN/Creatinine Ratio 24.4 (8-20); Calcium 8.2 mg/dL (8.6-10.3); EGFR African American 51.8 (>60); EGFR Non-African American 42.8 (>60); Potassium 4.5 mmol/L (3.5-5.0)
[2020-08-23] MEDS: Heparin 5000 UNITS/ML 1 mL VIAL SUBCUT SCH ×2 (00:14→06:04)
[2020-08-23] MEDS: Albuterol/Ipratropium NEB.SOL (2.5/0.5 MG) 3 ML NEB.SOLN INH SCH ×4 (03:05→20:28)
[2020-08-23 06:50] LABS: ABS Eosinophils 0.1 10^3/ul (0-0.6); ABS Lymphocytes 1.2 10^3/ul (1.0-4.8); ABS Monocytes 0.8 10^3/ul (0-0.8); ABS Neutrophils 6.6 10^3/ul (1.5-7.7); Eosinophil % 0.8 %; Hematocrit 20 % (35-47); Hemoglobin 6.7 g/dL (12.0-16.0); Lymphocyte % 13.6 %; Mean Corpuscular HGB Conc 33 g/dL (31-36); Mean Corpuscular Hemoglobin 30 pg (27-31); Mean Corpuscular Volume 90 fL (80-97); Platelet Count 146 10^3/uL (150-450); Red Blood Count 2.25 10^6 /uL (3.70-4.87); Red Cell Distribution Width 13 % (10-15); White Blood Count 8.6 10^3/uL (3.5-10.8)
[2020-08-23 08:37] LABS: Hematocrit 21 % (35-47); Hemoglobin 7.1 g/dL (12.0-16.0); Mean Corpuscular HGB Conc 34 g/dL (31-36); Mean Corpuscular Hemoglobin 31 pg (27-31); Mean Corpuscular Volume 90 fL (80-97); Mean Platelet Volume 8.4 fL (7.4-10.4); Platelet Count 144 10^3/uL (150-450); Red Blood Count 2.32 10^6 /uL (3.70-4.87); Red Cell Distribution Width 13 % (10-15); White Blood Count 8.7 10^3/uL (3.5-10.8)
[2020-08-23 18:03] LABS: Hematocrit 27 % (35-47); Hemoglobin 8.9 g/dL (12.0-16.0)
[2020-08-23 20:16] LABS: BUN/Creatinine Ratio 33.3 (8-20); Calcium 8.5 mg/dL (8.6-10.3); EGFR African American 114.2 (>60); EGFR Non-African American 94.3 (>60)
[2020-08-24] MEDS: Albuterol/Ipratropium NEB.SOL (2.5/0.5 MG) 3 ML NEB.SOLN INH SCH ×2 (01:59→07:30)
[2020-08-24 08:54] LABS: ABS Lymphocytes 0.7 10^3/ul (1.0-4.8); ABS Monocytes 0.7 10^3/ul (0-0.8); Eosinophil % 0.4 %; Hematocrit 25 % (35-47); Hemoglobin 8.3 g/dL (12.0-16.0); Lymphocyte % 8.7 %; Mean Corpuscular HGB Conc 33 g/dL (31-36); Mean Corpuscular Hemoglobin 30 pg (27-31); Mean Corpuscular Volume 89 fL (80-97); Mean Platelet Volume 8.2 fL (7.4-10.4); Platelet Count 156 10^3/uL (150-450); Red Blood Count 2.79 10^6 /uL (3.70-4.87); Red Cell Distribution Width 13 % (10-15); White Blood Count 8.5 10^3/uL (3.5-10.8)
[2020-08-24 09:31] VITALS: BP 136/46
== END 2020-08-24 09:02 | DRG 482 ==
LOC: ED 06:50 → OR 15:31 → SSU 16:00
PROVIDERS: ADMIT Hospitalist; ATTEND Student in an Organized Health Care Education/Training Program

== ENCOUNTER 2020-08-23 08:26 | Inpatient (IN) ==
[2020-08-24] MEDS ORDERED: Senna TAB 8.6 mg TAB PO PRN (11:33)
[2020-08-24] MEDS: Nicotine PATCH 14 MG/24 HR PATCH TRANSDERM SCH (14:33)
[2020-08-24] MEDS: Albuterol/Ipratropium NEB.SOL (2.5/0.5 MG) 3 ML NEB.SOLN INH SCH ×2 (14:56→19:53)
[2020-08-24] MEDS: Heparin 5000 UNITS/ML 1 mL VIAL SUBCUT SCH (19:54)
[2020-08-25] MEDS: Albuterol/Ipratropium NEB.SOL (2.5/0.5 MG) 3 ML NEB.SOLN INH SCH ×4 (02:04→20:03)
[2020-08-25] MEDS: Heparin 5000 UNITS/ML 1 mL VIAL SUBCUT SCH ×2 (11:12→21:25)
[2020-08-25] MEDS: Nicotine PATCH 14 MG/24 HR PATCH TRANSDERM SCH (12:56)
[2020-08-25] MEDS ORDERED: D5NS 0.9% 1000 ml BAG 1,000 ML IV SCH (18:00)
[2020-08-25] MEDS: Magnesium Hydroxide LIQ 30 ML UDC PO PRN (21:35)
[2020-08-26] MEDS: Albuterol/Ipratropium NEB.SOL (2.5/0.5 MG) 3 ML NEB.SOLN INH SCH ×5 (02:00→23:01)
[2020-08-26 06:30] LABS: ABS Eosinophils 0.2 10^3/ul (0-0.6); ABS Lymphocytes 0.9 10^3/ul (1.0-4.8); ABS Monocytes 0.7 10^3/ul (0-0.8); ABS Neutrophils 3.6 10^3/ul (1.5-7.7); Eosinophil % 3.7 %; Hematocrit 23 % (35-47); Hemoglobin 7.7 g/dL (12.0-16.0); Lymphocyte % 16.8 %; Mean Corpuscular HGB Conc 34 g/dL (31-36); Mean Corpuscular Hemoglobin 30 pg (27-31); Mean Corpuscular Volume 89 fL (80-97); Mean Platelet Volume 7.9 fL (7.4-10.4); Platelet Count 196 10^3/uL (150-450); Red Blood Count 2.59 10^6 /uL (3.70-4.87); Red Cell Distribution Width 13 % (10-15); White Blood Count 5.4 10^3/uL (3.5-10.8)
[2020-08-26 06:42] LABS: Albumin 2.7 g/dL (3.2-5.2); Albumin/Globulin Ratio 1.1 (1-3); BUN/Creatinine Ratio 36.2 (8-20); Calcium 8.1 mg/dL (8.6-10.3); EGFR African American 151.3 (>60); EGFR Non-African American 125.1 (>60); Globulin 2.4 g/dL (2-4); Potassium 3.4 mmol/L (3.5-5.0); Total Bilirubin 0.9 mg/dL (0.2-1.0); Total Protein 5.1 g/dL (6.4-8.9)
[2020-08-26] MEDS: Nicotine PATCH 14 MG/24 HR PATCH TRANSDERM SCH (07:40)
[2020-08-26] MEDS: Heparin 5000 UNITS/ML 1 mL VIAL SUBCUT SCH ×2 (07:40→22:16)
[2020-08-26] MEDS: Magnesium Hydroxide LIQ 30 ML UDC PO PRN ×2 (07:45→17:51)
[2020-08-26] MEDS ORDERED: diPHENhydraMINE 25 mg TAB PO ONE (09:58)
[2020-08-26] MEDS: Potassium Chlor 20 meq TAB.ER PO SCH ×2 (11:56→22:36)
[2020-08-26] MEDS ORDERED: Furosemide 20 mg/2 ml IV VIAL IV ONE (12:00)
[2020-08-26 13:40] LABS: Urine Appearance Clear; Urine Bilirubin Negative (Negative); Urine Blood Negative (Negative); Urine Color Yellow; Urine Glucose Negative (Negative); Urine Ketones Trace (Negative); Urine Nitrite Negative (Negative); Urine Protein Negative (Negative); Urine Specific Gravity 1.017 (1.002-1.030); Urine Urobilinogen Negative (Negative)
[2020-08-26] MEDS: Ondansetron 4 mg VIAL 2 MG/ML 2 ml VIAL IV PRN (21:41)
[2020-08-26] MEDS: Mometasone/Formoter 200/5 MDI INH SCH (23:00)
[2020-08-27] MEDS ORDERED: Morphine 2 MG/ML SYRINGE IV ONE (00:50)
[2020-08-27] MEDS ORDERED: Iohexol 300 (CONTRAST) 10 ML SDV IV ONE (01:33)
[2020-08-27] MEDS: Ondansetron 4 mg VIAL 2 MG/ML 2 ml VIAL IV PRN ×2 (04:21→10:48)
[2020-08-27] MEDS: Cefepime 2 GM in Dextrose 2 GM/50 ML BAG IV SCH ×2 (04:30→20:29)
[2020-08-27 05:23] LABS: Hematocrit 35 % (35-47); Hemoglobin 11.9 g/dL (12.0-16.0); Mean Corpuscular HGB Conc 34 g/dL (31-36); Mean Corpuscular Hemoglobin 30 pg (27-31); Mean Corpuscular Volume 89 fL (80-97); Mean Platelet Volume 7.3 fL (7.4-10.4); Platelet Count 259 10^3/uL (150-450); Red Blood Count 3.94 10^6 /uL (3.70-4.87); Red Cell Distribution Width 14 % (10-15); White Blood Count 8.6 10^3/uL (3.5-10.8)
[2020-08-27 05:39] LABS: BUN/Creatinine Ratio 30.8 (8-20); Calcium 8.5 mg/dL (8.6-10.3); EGFR African American 134.7 (>60); EGFR Non-African American 111.3 (>60); Potassium 3.8 mmol/L (3.5-5.0)
[2020-08-27] MEDS: DOXYcycline 100 MG in NS 0.9% 250 ml 250 ML IVPB SCH ×2 (05:49→21:15)
[2020-08-27 06:25] LABS: C Reactive Protein 132.42 mg/L (<8.01)
[2020-08-27] MEDS: Mometasone/Formoter 200/5 MDI INH SCH ×2 (06:58→19:37)
[2020-08-27] MEDS: Albuterol/Ipratropium NEB.SOL (2.5/0.5 MG) 3 ML NEB.SOLN INH SCH ×3 (06:58→19:36)
[2020-08-27 07:05] LABS: ABS Eosinophils 0.1 10^3/ul (0-0.6); ABS Lymphocytes 0.7 10^3/ul (1.0-4.8); ABS Monocytes 0.8 10^3/ul (0-0.8); ABS Neutrophils 7.1 10^3/ul (1.5-7.7); Eosinophil % 0.7 %; Lymphocyte % 7.6 %
[2020-08-27] MEDS ORDERED: Furosemide 20 mg/2 ml IV VIAL IV SLOW PU ONE (09:06)
[2020-08-27] MEDS ORDERED: CMCS: Methylnaltrexone SQ (NF) 12 MG/0.6 ML VIAL SUBCUT ONE (10:00)
[2020-08-27] MEDS: Heparin 5000 UNITS/ML 1 mL VIAL SUBCUT SCH ×2 (10:33→20:33)
[2020-08-27] MEDS: Nicotine PATCH 14 MG/24 HR PATCH TRANSDERM SCH (10:37)
[2020-08-27] MEDS: Potassium Chlor 20 meq TAB.ER PO SCH (10:45)
[2020-08-27] MEDS: Senna TAB 8.6 mg TAB PO SCH (20:59)
[2020-08-28] MEDS: Albuterol/Ipratropium NEB.SOL (2.5/0.5 MG) 3 ML NEB.SOLN INH SCH ×4 (00:59→19:49)
[2020-08-28] MEDS: Mometasone/Formoter 200/5 MDI INH SCH ×2 (08:04→21:36)
[2020-08-28] MEDS: Heparin 5000 UNITS/ML 1 mL VIAL SUBCUT SCH ×2 (08:42→21:20)
[2020-08-28] MEDS: Cefepime 2 GM in Dextrose 2 GM/50 ML BAG IV SCH ×2 (08:48→21:17)
[2020-08-28 09:22] LABS: BUN/Creatinine Ratio 38.8 (8-20); Calcium 8.9 mg/dL (8.6-10.3); EGFR African American 144.2 (>60); EGFR Non-African American 119.2 (>60); Potassium 4.4 mmol/L (3.5-5.0)
[2020-08-28 09:23] LABS: ABS Monocytes 1.3 10^3/ul (0-0.8); ABS Neutrophils 11.4 10^3/ul (1.5-7.7); Eosinophil % 0.2 %; Hematocrit 33 % (35-47); Hemoglobin 11.2 g/dL (12.0-16.0); Lymphocyte % 6.9 %; Mean Corpuscular HGB Conc 34 g/dL (31-36); Mean Corpuscular Hemoglobin 30 pg (27-31); Mean Corpuscular Volume 89 fL (80-97); Mean Platelet Volume 7.5 fL (7.4-10.4); Platelet Count 293 10^3/uL (150-450); Red Cell Distribution Width 14 % (10-15); White Blood Count 13.7 10^3/uL (3.5-10.8)
[2020-08-28] MEDS: DOXYcycline 100 MG in NS 0.9% 250 ml 250 ML IVPB SCH ×2 (09:59→22:30)
[2020-08-28] MEDS: Nicotine PATCH 14 MG/24 HR PATCH TRANSDERM SCH (10:08)
[2020-08-28] MEDS: Senna TAB 8.6 mg TAB PO SCH (21:19)
[2020-08-29] MEDS: Albuterol/Ipratropium NEB.SOL (2.5/0.5 MG) 3 ML NEB.SOLN INH SCH ×4 (01:15→20:32)
[2020-08-29 06:22] LABS: ABS Eosinophils 0.1 10^3/ul (0-0.6); ABS Lymphocytes 0.8 10^3/ul (1.0-4.8); ABS Monocytes 1.2 10^3/ul (0-0.8); ABS Neutrophils 9.6 10^3/ul (1.5-7.7); Eosinophil % 0.6 %; Hematocrit 32 % (35-47); Hemoglobin 10.6 g/dL (12.0-16.0); Lymphocyte % 6.9 %; Mean Corpuscular HGB Conc 33 g/dL (31-36); Mean Corpuscular Hemoglobin 30 pg (27-31); Mean Corpuscular Volume 91 fL (80-97); Mean Platelet Volume 7.3 fL (7.4-10.4); Platelet Count 286 10^3/uL (150-450); Red Blood Count 3.54 10^6 /uL (3.70-4.87); Red Cell Distribution Width 14 % (10-15); White Blood Count 11.7 10^3/uL (3.5-10.8)
[2020-08-29 06:31] LABS: BUN/Creatinine Ratio 47.4 (8-20); C Reactive Protein 258.54 mg/L (<8.01); Calcium 8.6 mg/dL (8.6-10.3); EGFR African American 193.4 (>60); EGFR Non-African American 159.8 (>60); Magnesium 1.7 mg/dL (1.9-2.7)
[2020-08-29] MEDS: Mometasone/Formoter 200/5 MDI INH SCH ×2 (07:36→20:32)
[2020-08-29] MEDS ORDERED: Magnesium Sulfate 2 gm BAG 2 GM/50 ML BAG IVPB ONE (07:50)
[2020-08-29] MEDS: Heparin 5000 UNITS/ML 1 mL VIAL SUBCUT SCH ×2 (09:13→21:37)
[2020-08-29] MEDS: Nicotine PATCH 14 MG/24 HR PATCH TRANSDERM SCH (09:33)
[2020-08-29] MEDS ORDERED: Furosemide 20 mg/2 ml IV VIAL IV SLOW PU ONE (10:33)
[2020-08-29] MEDS: cefTRIAXone 1 gm/50 mL NS BAG 1 GM/50 ML BAG IVPB SCH (10:57)
[2020-08-29] MEDS: DOXYcycline 100 MG in NS 0.9% 250 ml 250 ML IVPB SCH ×3 (11:32→21:36)
[2020-08-29] MEDS: Cefepime 2 GM in Dextrose 2 GM/50 ML BAG IV SCH (11:33)
[2020-08-29] MEDS: Senna TAB 8.6 mg TAB PO SCH (21:35)
[2020-08-30] MEDS: Albuterol/Ipratropium NEB.SOL (2.5/0.5 MG) 3 ML NEB.SOLN INH SCH ×4 (02:02→20:42)
[2020-08-30 05:42] LABS: ABS Eosinophils 0.1 10^3/ul (0-0.6); ABS Lymphocytes 0.8 10^3/ul (1.0-4.8); ABS Monocytes 0.9 10^3/ul (0-0.8); ABS Neutrophils 8.6 10^3/ul (1.5-7.7); Eosinophil % 0.8 %; Hematocrit 32 % (35-47); Hemoglobin 10.8 g/dL (12.0-16.0); Lymphocyte % 7.6 %; Mean Corpuscular HGB Conc 34 g/dL (31-36); Mean Corpuscular Hemoglobin 30 pg (27-31); Mean Corpuscular Volume 89 fL (80-97); Mean Platelet Volume 6.9 fL (7.4-10.4); Platelet Count 312 10^3/uL (150-450); Red Blood Count 3.59 10^6 /uL (3.70-4.87); Red Cell Distribution Width 13 % (10-15); White Blood Count 10.4 10^3/uL (3.5-10.8)
[2020-08-30 06:07] LABS: BUN/Creatinine Ratio 35.7 (8-20); Calcium 8.4 mg/dL (8.6-10.3); EGFR African American 172.3 (>60); EGFR Non-African American 142.4 (>60); Magnesium 1.7 mg/dL (1.9-2.7); Potassium 3.7 mmol/L (3.5-5.0)
[2020-08-30] MEDS: Mometasone/Formoter 200/5 MDI INH SCH ×2 (07:31→20:42)
[2020-08-30] MEDS: Heparin 5000 UNITS/ML 1 mL VIAL SUBCUT SCH ×2 (08:03→21:13)
[2020-08-30] MEDS: Nicotine PATCH 14 MG/24 HR PATCH TRANSDERM SCH (08:03)
[2020-08-30] MEDS: DOXYcycline 100 MG in NS 0.9% 250 ml 250 ML IVPB SCH ×2 (09:50→22:10)
[2020-08-30] MEDS: cefTRIAXone 1 gm/50 mL NS BAG 1 GM/50 ML BAG IVPB SCH (11:10)
[2020-08-30] MEDS: Senna TAB 8.6 mg TAB PO SCH (20:59)
[2020-08-31] MEDS: Albuterol/Ipratropium NEB.SOL (2.5/0.5 MG) 3 ML NEB.SOLN INH SCH ×4 (00:52→20:21)
[2020-08-31] MEDS: Heparin 5000 UNITS/ML 1 mL VIAL SUBCUT SCH (08:27)
[2020-08-31] MEDS: Nicotine PATCH 14 MG/24 HR PATCH TRANSDERM SCH (08:28)
[2020-08-31] MEDS: Mometasone/Formoter 200/5 MDI INH SCH ×2 (08:33→20:22)
[2020-08-31] MEDS: DOXYcycline 100 MG in NS 0.9% 250 ml 250 ML IVPB SCH (14:30)
[2020-08-31] MEDS: cefTRIAXone 1 gm/50 mL NS BAG 1 GM/50 ML BAG IVPB SCH (15:00)
[2020-08-31] MEDS ORDERED: cefTRIAXone 1 gm/50 mL NS BAG 1 GM/50 ML BAG IVPB SCH (15:30)
[2020-09-01] MEDS: Heparin 5000 UNITS/ML 1 mL VIAL SUBCUT SCH ×3 (01:46→20:16)
[2020-09-01] MEDS: Senna TAB 8.6 mg TAB PO SCH ×2 (01:46→20:39)
[2020-09-01] MEDS: DOXYcycline 100 MG in NS 0.9% 250 ml 250 ML IVPB SCH ×3 (02:13→16:04)
[2020-09-01] MEDS: Albuterol/Ipratropium NEB.SOL (2.5/0.5 MG) 3 ML NEB.SOLN INH SCH ×3 (06:57→18:58)
[2020-09-01] MEDS: Mometasone/Formoter 200/5 MDI INH SCH ×2 (07:00→20:16)
[2020-09-01] MEDS: Nicotine PATCH 14 MG/24 HR PATCH TRANSDERM SCH (08:42)
[2020-09-02] MEDS: Albuterol/Ipratropium NEB.SOL (2.5/0.5 MG) 3 ML NEB.SOLN INH SCH ×3 (06:58→18:56)
[2020-09-02] MEDS: Mometasone/Formoter 200/5 MDI INH SCH ×2 (07:00→22:34)
[2020-09-02] MEDS: Heparin 5000 UNITS/ML 1 mL VIAL SUBCUT SCH ×2 (07:41→21:07)
[2020-09-02] MEDS: Nicotine PATCH 14 MG/24 HR PATCH TRANSDERM SCH (07:41)
[2020-09-02 08:23] LABS: ABS Eosinophils 0.1 10^3/ul (0-0.6); ABS Lymphocytes 1.5 10^3/ul (1.0-4.8); ABS Monocytes 0.9 10^3/ul (0-0.8); ABS Neutrophils 8.3 10^3/ul (1.5-7.7); Eosinophil % 1.3 %; Hematocrit 34 % (35-47); Hemoglobin 11.2 g/dL (12.0-16.0); Lymphocyte % 14.1 %; Mean Corpuscular HGB Conc 33 g/dL (31-36); Mean Corpuscular Hemoglobin 30 pg (27-31); Mean Corpuscular Volume 91 fL (80-97); Mean Platelet Volume 7.1 fL (7.4-10.4); Nucleated Red Blood Cells % 0.1; Platelet Count 296 10^3/uL (150-450); Red Blood Count 3.71 10^6 /uL (3.70-4.87); Red Cell Distribution Width 14 % (10-15); White Blood Count 10.8 10^3/uL (3.5-10.8)
[2020-09-02 08:25] LABS: Albumin 2.9 g/dL (3.2-5.2); Albumin/Globulin Ratio 0.9 (1-3); BUN/Creatinine Ratio 26.2 (8-20); Calcium 8.9 mg/dL (8.6-10.3); EGFR African American 172.3 (>60); EGFR Non-African American 142.4 (>60); Globulin 3.2 g/dL (2-4); Potassium 3.8 mmol/L (3.5-5.0); Total Bilirubin 0.7 mg/dL (0.2-1.0); Total Protein 6.1 g/dL (6.4-8.9)
[2020-09-02] MEDS: Senna TAB 8.6 mg TAB PO SCH (21:10)
[2020-09-03] MEDS: Albuterol/Ipratropium NEB.SOL (2.5/0.5 MG) 3 ML NEB.SOLN INH SCH ×2 (07:02→13:30)
[2020-09-03] MEDS: Mometasone/Formoter 200/5 MDI INH SCH ×2 (07:03→20:06)
[2020-09-03] MEDS: Heparin 5000 UNITS/ML 1 mL VIAL SUBCUT SCH ×2 (10:38→20:06)
[2020-09-03] MEDS: Nicotine PATCH 14 MG/24 HR PATCH TRANSDERM SCH (10:41)
[2020-09-03] MEDS: Senna TAB 8.6 mg TAB PO SCH (20:18)
[2020-09-04] MEDS: Mometasone/Formoter 200/5 MDI INH SCH ×2 (08:06→20:44)
[2020-09-04] MEDS: Heparin 5000 UNITS/ML 1 mL VIAL SUBCUT SCH ×2 (08:27→20:35)
[2020-09-04] MEDS: Nicotine PATCH 14 MG/24 HR PATCH TRANSDERM SCH (08:27)
[2020-09-04] MEDS: Senna TAB 8.6 mg TAB PO SCH (20:35)
[2020-09-05] MEDS: Nicotine PATCH 14 MG/24 HR PATCH TRANSDERM SCH (08:22)
[2020-09-05] MEDS: Heparin 5000 UNITS/ML 1 mL VIAL SUBCUT SCH ×2 (08:23→21:20)
[2020-09-05] MEDS: Mometasone/Formoter 200/5 MDI INH SCH ×2 (10:16→21:23)
[2020-09-05] MEDS: Albuterol/Ipratropium NEB.SOL (2.5/0.5 MG) 3 ML NEB.SOLN INH PRN (21:10)
[2020-09-05] MEDS: Magnesium Hydroxide LIQ 30 ML UDC PO PRN (21:19)
[2020-09-05] MEDS: Senna TAB 8.6 mg TAB PO SCH (21:20)
[2020-09-06] MEDS: Mometasone/Formoter 200/5 MDI INH SCH ×2 (07:44→20:11)
[2020-09-06] MEDS: Nicotine PATCH 14 MG/24 HR PATCH TRANSDERM SCH (08:25)
[2020-09-06] MEDS: Heparin 5000 UNITS/ML 1 mL VIAL SUBCUT SCH ×2 (08:26→20:16)
[2020-09-06] MEDS: Senna TAB 8.6 mg TAB PO SCH (20:08)
[2020-09-07] MEDS: Nicotine PATCH 14 MG/24 HR PATCH TRANSDERM SCH (07:36)
[2020-09-07] MEDS: Heparin 5000 UNITS/ML 1 mL VIAL SUBCUT SCH ×2 (07:36→20:10)
[2020-09-07] MEDS: Mometasone/Formoter 200/5 MDI INH SCH ×2 (09:04→20:10)
[2020-09-07] MEDS: Senna TAB 8.6 mg TAB PO SCH (20:35)
[2020-09-08] MEDS: Nicotine PATCH 14 MG/24 HR PATCH TRANSDERM SCH (09:25)
[2020-09-08] MEDS: Mometasone/Formoter 200/5 MDI INH SCH ×2 (09:25→20:55)
[2020-09-08] MEDS: Heparin 5000 UNITS/ML 1 mL VIAL SUBCUT SCH ×2 (09:25→20:46)
[2020-09-08] MEDS: Magnesium Hydroxide LIQ 30 ML UDC PO PRN (19:18)
[2020-09-08] MEDS: Senna TAB 8.6 mg TAB PO SCH (20:56)
[2020-09-09 05:56] LABS: Hematocrit 32 % (35-47); Hemoglobin 10.8 g/dL (12.0-16.0); Mean Corpuscular HGB Conc 34 g/dL (31-36); Mean Corpuscular Hemoglobin 31 pg (27-31); Mean Corpuscular Volume 91 fL (80-97); Mean Platelet Volume 6.9 fL (7.4-10.4); Platelet Count 301 10^3/uL (150-450); Red Blood Count 3.52 10^6 /uL (3.70-4.87); Red Cell Distribution Width 15 % (10-15); White Blood Count 5.7 10^3/uL (3.5-10.8)
[2020-09-09 06:12] LABS: Calcium 8.9 mg/dL (8.6-10.3); EGFR African American 151.3 (>60); EGFR Non-African American 125.1 (>60); Globulin 3.1 g/dL (2-4); Potassium 4.3 mmol/L (3.5-5.0); Total Bilirubin 0.5 mg/dL (0.2-1.0); Total Protein 6.1 g/dL (6.4-8.9)
[2020-09-09] MEDS: Mometasone/Formoter 200/5 MDI INH SCH ×2 (08:36→21:20)
[2020-09-09 09:14] LABS: ABS Basophils 0.1 10^3/ul (0-0.2); ABS Eosinophils 0.1 10^3/ul (0-0.6); ABS Lymphocytes 1.5 10^3/ul (1.0-4.8); ABS Monocytes 0.7 10^3/ul (0-0.8); ABS Neutrophils 3.2 10^3/ul (1.5-7.7); Eosinophil % 1.9 %; Lymphocyte % 27.2 %; Nucleated Red Blood Cells % 0.1
[2020-09-09] MEDS: Heparin 5000 UNITS/ML 1 mL VIAL SUBCUT SCH ×2 (10:03→21:20)
[2020-09-09] MEDS: Nicotine PATCH 14 MG/24 HR PATCH TRANSDERM SCH (10:03)
[2020-09-09] MEDS: Senna TAB 8.6 mg TAB PO SCH (21:23)
[2020-09-10] MEDS: Mometasone/Formoter 200/5 MDI INH SCH ×2 (08:22→21:31)
[2020-09-10] MEDS: Heparin 5000 UNITS/ML 1 mL VIAL SUBCUT SCH ×2 (08:47→21:32)
[2020-09-10] MEDS: Nicotine PATCH 14 MG/24 HR PATCH TRANSDERM SCH (08:50)
[2020-09-10] MEDS: Senna TAB 8.6 mg TAB PO SCH (21:26)
[2020-09-11] MEDS: Mometasone/Formoter 200/5 MDI INH SCH ×2 (07:44→21:18)
[2020-09-11] MEDS: Nicotine PATCH 14 MG/24 HR PATCH TRANSDERM SCH (08:14)
[2020-09-11] MEDS: Heparin 5000 UNITS/ML 1 mL VIAL SUBCUT SCH ×2 (08:15→21:19)
[2020-09-11] MEDS: Senna TAB 8.6 mg TAB PO SCH (21:08)
[2020-09-12] MEDS: Mometasone/Formoter 200/5 MDI INH SCH ×2 (08:04→21:36)
[2020-09-12] MEDS: Nicotine PATCH 14 MG/24 HR PATCH TRANSDERM SCH (09:11)
[2020-09-12] MEDS: Heparin 5000 UNITS/ML 1 mL VIAL SUBCUT SCH ×2 (09:12→20:53)
[2020-09-12] MEDS: Nystatin TOP POWDER 15 GM BTL TOPICAL SCH (20:47)
[2020-09-12] MEDS: Senna TAB 8.6 mg TAB PO SCH (20:57)
[2020-09-13] MEDS: Albuterol/Ipratropium NEB.SOL (2.5/0.5 MG) 3 ML NEB.SOLN INH PRN (02:40)
[2020-09-13] MEDS: Mometasone/Formoter 200/5 MDI INH SCH ×2 (08:21→21:31)
[2020-09-13] MEDS: Nicotine PATCH 14 MG/24 HR PATCH TRANSDERM SCH (08:52)
[2020-09-13] MEDS: Heparin 5000 UNITS/ML 1 mL VIAL SUBCUT SCH ×2 (08:53→22:54)
[2020-09-13] MEDS: Nystatin TOP POWDER 15 GM BTL TOPICAL SCH ×2 (08:55→22:30)
[2020-09-13] MEDS: Magnesium Hydroxide LIQ 30 ML UDC PO PRN (16:44)
[2020-09-13] MEDS: Senna TAB 8.6 mg TAB PO SCH (22:56)
[2020-09-14] MEDS: Albuterol/Ipratropium NEB.SOL (2.5/0.5 MG) 3 ML NEB.SOLN INH PRN (05:26)
[2020-09-14] MEDS: Heparin 5000 UNITS/ML 1 mL VIAL SUBCUT SCH ×2 (09:31→21:27)
[2020-09-14] MEDS: Nicotine PATCH 14 MG/24 HR PATCH TRANSDERM SCH (09:32)
[2020-09-14] MEDS: Mometasone/Formoter 200/5 MDI INH SCH ×2 (09:36→21:26)
[2020-09-14] MEDS: Nystatin TOP POWDER 15 GM BTL TOPICAL SCH ×2 (09:38→21:35)
[2020-09-14] MEDS: Senna TAB 8.6 mg TAB PO SCH (21:27)
[2020-09-15 04:39] VITALS: BP 119/46
[2020-09-15] MEDS: Heparin 5000 UNITS/ML 1 mL VIAL SUBCUT SCH (08:35)
[2020-09-15] MEDS: Nicotine PATCH 14 MG/24 HR PATCH TRANSDERM SCH (08:50)
[2020-09-15] MEDS: Nystatin TOP POWDER 15 GM BTL TOPICAL SCH (08:50)
[2020-09-15] MEDS: Mometasone/Formoter 200/5 MDI INH SCH (08:50)
== END 2020-09-15 14:01 | disposition home health service (06) | DRG 559 ==
LOC: PMRU 08-24 10:01
PROVIDERS: ADMIT Physical Medicine & Rehabilitation; ATTEND Physical Medicine & Rehabilitation

== ENCOUNTER 2020-11-17 19:30 | Inpatient (IN) ==
[2020-11-17 20:27] LABS: ABS Basophils 0.1 10^3/ul (0-0.2); ABS Eosinophils 0.1 10^3/ul (0-0.6); ABS Lymphocytes 1.4 10^3/ul (1.0-4.8); ABS Monocytes 1.1 10^3/ul (0-0.8); ABS Neutrophils 10.2 10^3/ul (1.5-7.7); Eosinophil % 1.1 %; Hematocrit 38 % (35-47); Hemoglobin 12.5 g/dL (12.0-16.0); Lymphocyte % 10.5 %; Mean Corpuscular HGB Conc 33 g/dL (31-36); Mean Corpuscular Hemoglobin 29 pg (27-31); Mean Corpuscular Volume 87 fL (80-97); Mean Platelet Volume 8.1 fL (7.4-10.4); Platelet Count 322 10^3/uL (150-450); Red Blood Count 4.34 10^6 /uL (3.70-4.87); Red Cell Distribution Width 14 % (10-15)
[2020-11-17 20:35] LABS: Activated Partial Thrombo Time 30.4 seconds (26.0-38.0); INR 1.11 (0.86-1.15)
[2020-11-17 20:45] LABS: ALT 9 U/L (7-52); AST 13 U/L (13-39); Albumin 3.5 g/dL (3.2-5.2); Albumin/Globulin Ratio 0.9 (1-3); Alkaline Phosphatase 84 U/L (35-149); Anion Gap 8 mmol/L (2-11); Blood Urea Nitrogen 16 mg/dL (6-24); CO2 Carbon Dioxide 24 mmol/L (22-32); Calcium 9.4 mg/dL (8.6-10.3); Chloride 100 mmol/L (101-111); Cholesterol 109 mg/dL; EGFR Non-African American 124.8 (>60); Globulin 3.8 g/dL (2-4); Glucose 120 mg/dL (70-100); HDL Cholesterol 52.5 mg/dL; LDL Cholesterol 46 mg/dL; Potassium 3.8 mmol/L (3.5-5.0); Sodium 132 mmol/L (135-145); Total Protein 7.3 g/dL (6.4-8.9); Triglycerides 55 mg/dL
[2020-11-17 21:05] LABS: Alcohol, S < 10 mg/dL (<10)
[2020-11-17] MEDS ORDERED: Iohexol 350 (CONTRAST) 500 ML MDV IV ONE (21:30)
[2020-11-17] MEDS ORDERED: Senna TAB 8.6 mg TAB PO PRN (22:52)
[2020-11-17] MEDS ORDERED: Albuterol HFA INHALER 8 gm MDI INH PRN (23:02)
[2020-11-17] MEDS ORDERED: Albuterol/Ipratropium NEB.SOL (2.5/0.5 MG) 3 ML NEB.SOLN INH PRN ×2 (23:02→23:54)
[2020-11-18] MEDS: Heparin 5000 UNITS/ML 1 mL VIAL SUBCUT SCH ×3 (05:48→22:45)
[2020-11-18] MEDS: Mometasone/Formoter 200/5 MDI INH SCH ×2 (07:19→20:34)
[2020-11-18] MEDS: Magnesium Hydroxide LIQ 30 ML UDC PO PRN (10:02)
[2020-11-18] MEDS: Polyethylene Glycol 3350 17 GM PACKET PO PRN (10:02)
[2020-11-18] MEDS ORDERED: Albuterol 2.5mg/3 ml (0.083%) NEB.SOLN INH PRN (16:15)
[2020-11-18] MEDS: cefTRIAXone 1 gm/50 mL NS BAG 1 GM/50 ML BAG IVPB SCH (18:15)
[2020-11-18] MEDS: SPIRIVA Respimat (tiotropium) 2.5 mcg/inh Inhaler INH SCH (18:18)
[2020-11-19 04:48] LABS: Hematocrit 35 % (35-47); Hemoglobin 11.6 g/dL (12.0-16.0); Mean Corpuscular HGB Conc 33 g/dL (31-36); Mean Corpuscular Hemoglobin 29 pg (27-31); Mean Corpuscular Volume 88 fL (80-97); Platelet Count 271 10^3/uL (150-450); Red Blood Count 3.97 10^6 /uL (3.70-4.87); Red Cell Distribution Width 13 % (10-15)
[2020-11-19] MEDS: Heparin 5000 UNITS/ML 1 mL VIAL SUBCUT SCH ×3 (05:30→20:28)
[2020-11-19] MEDS: SPIRIVA Respimat (tiotropium) 2.5 mcg/inh Inhaler INH SCH (08:09)
[2020-11-19] MEDS: Mometasone/Formoter 200/5 MDI INH SCH ×2 (08:09→20:03)
[2020-11-19] MEDS ORDERED: Lidocaine 1% VIAL 10 MG/ML VIAL INJ ONE (13:47)
[2020-11-19] MEDS: cefTRIAXone 1 gm/50 mL NS BAG 1 GM/50 ML BAG IVPB SCH (17:02)
[2020-11-19] MEDS: Magnesium Hydroxide LIQ 30 ML UDC PO PRN (17:05)
[2020-11-19 18:21] LABS: Urine Appearance Clear; Urine Bilirubin Negative (Negative); Urine Blood Negative (Negative); Urine Color Yellow; Urine Glucose Negative (Negative); Urine Ketones Negative (Negative); Urine Nitrite Negative (Negative); Urine Protein Negative (Negative); Urine Urobilinogen Negative (Negative)
[2020-11-19 18:40] LABS: Urine Bacteria Absent (Absent); Urine Red Blood Cell Absent (Absent); Urine Squamous Epithelial Cell Present (Absent); Urine White Blood Cell Trace(0-5/hpf) (Absent)
[2020-11-20] MEDS: Heparin 5000 UNITS/ML 1 mL VIAL SUBCUT SCH ×3 (05:28→20:45)
[2020-11-20] MEDS: SPIRIVA Respimat (tiotropium) 2.5 mcg/inh Inhaler INH SCH (07:53)
[2020-11-20] MEDS: Mometasone/Formoter 200/5 MDI INH SCH ×2 (07:53→20:13)
[2020-11-20] MEDS: cefTRIAXone 1 gm/50 mL NS BAG 1 GM/50 ML BAG IVPB SCH (17:04)
[2020-11-21] MEDS: Heparin 5000 UNITS/ML 1 mL VIAL SUBCUT SCH ×3 (05:02→21:15)
[2020-11-21] MEDS: Mometasone/Formoter 200/5 MDI INH SCH ×2 (09:15→19:53)
[2020-11-21] MEDS: SPIRIVA Respimat (tiotropium) 2.5 mcg/inh Inhaler INH SCH (09:15)
[2020-11-21] MEDS: cefTRIAXone 1 gm/50 mL NS BAG 1 GM/50 ML BAG IVPB SCH (17:31)
[2020-11-22] MEDS: Heparin 5000 UNITS/ML 1 mL VIAL SUBCUT SCH ×3 (05:28→21:07)
[2020-11-22] MEDS: Mometasone/Formoter 200/5 MDI INH SCH ×2 (09:27→19:25)
[2020-11-22] MEDS: SPIRIVA Respimat (tiotropium) 2.5 mcg/inh Inhaler INH SCH (09:28)
[2020-11-22] MEDS: Polyethylene Glycol 3350 17 GM PACKET PO PRN (14:14)
[2020-11-22] MEDS: cefTRIAXone 1 gm/50 mL NS BAG 1 GM/50 ML BAG IVPB SCH (16:36)
[2020-11-23] MEDS: Heparin 5000 UNITS/ML 1 mL VIAL SUBCUT SCH ×3 (05:41→21:04)
[2020-11-23] MEDS: SPIRIVA Respimat (tiotropium) 2.5 mcg/inh Inhaler INH SCH (07:22)
[2020-11-23] MEDS: Mometasone/Formoter 200/5 MDI INH SCH ×2 (07:23→21:31)
[2020-11-23] MEDS ORDERED: Polyethylene Glycol 3350 17 GM PACKET PO PRN (15:19)
[2020-11-23] MEDS: cefTRIAXone 1 gm/50 mL NS BAG 1 GM/50 ML BAG IVPB SCH (16:34)
[2020-11-24] MEDS: Heparin 5000 UNITS/ML 1 mL VIAL SUBCUT SCH (06:03)
[2020-11-24 07:29] LABS: Hematocrit 37 % (35-47); Mean Corpuscular HGB Conc 33 g/dL (31-36); Mean Corpuscular Hemoglobin 29 pg (27-31); Mean Corpuscular Volume 88 fL (80-97); Mean Platelet Volume 7.7 fL (7.4-10.4); Platelet Count 327 10^3/uL (150-450); Red Blood Count 4.16 10^6 /uL (3.70-4.87); Red Cell Distribution Width 14 % (10-15); White Blood Count 12.7 10^3/uL (3.5-10.8)
[2020-11-24] MEDS: SPIRIVA Respimat (tiotropium) 2.5 mcg/inh Inhaler INH SCH (08:54)
[2020-11-24] MEDS: Mometasone/Formoter 200/5 MDI INH SCH (08:54)
[2020-11-24 12:44] VITALS: BP 108/48
== END 2020-11-24 16:00 | DRG 913 ==
LOC: MEDTELE 19:30 → ED 19:30 → MEDTELE 11-18 04:43
PROVIDERS: ADMIT Student in an Organized Health Care Education/Training Program; ATTEND Internal Medicine